=== PATIENT | female | born 1960 | race Caucasian/White ===

== ENCOUNTER → 2016-07-10 | Outpatient (CLI) | payer OTHER ==
[2016-02-15 10:00] VITALS: BP 175/85
[~2016-07-10] MED LIST: ASCO500T2 PO; ASPI81TA2 PO; CARV12.5 PO; CARV3.12 PO; CIPR500T94 PO; DOCU-27 PO; ERGO500012 PO; FERR325T72 PO; HYDR-2666 PO; IBUP200T77 PO; LOSA50TA2 PO
--- NOTE | 2016-07-11 14:47 | EKG ---
[facility] [address] [place] [address] Test Date: 2016-07-11 Test Time: 12:43:17 Pat Name: DESHAWN SCOTT Department: Room: Gender: F Structural Steel Fitter: Selwyn Pérez : 1960 Requested By: MARTIN RODRIGUEZ Order Number: [id number] Reading MD: Martin Rodriguez Interpretive Statements Pt is in sinus rhythm. Several episodes of sinus tach with rate of up to 126. Some sinus bradycardia with a rate of 55 Rare PAC's were recorded Electronically Signed On 07-14-2016 19:04:44 CDT by Martin Rodriguez
== END | disposition home or self-care (01) ==
LOC: EKG 09:15
PROVIDERS: ATTEND Internal Medicine Cardiovascular Disease
DX: I42.9 Cardiomyopathy, unspecified (principal)
CPT/HCPCS: 93225; 93226

== ENCOUNTER → 2017-02-17 | Outpatient (CLI) | payer OTHER ==
[2016-02-15 10:00] VITALS: BP 175/85
[~2017-02-17] MED LIST changes: +ASPI-630 PO; -ASPI81TA2 PO; +DOCU-109 PO; -DOCU-27 PO; -ERGO500012 PO; +ERGO500027 PO; -HYDR-2666 PO; +HYDR-2758 PO
[2017-02-17 08:58] LABS: BASO % 0 % (0-3); EOS % 0 % (0-3); HEMATOCRIT 36.2 % (36.0-47.0); LYMPH # 1.4 x10^3/uL (1.0-4.8); LYMPH % 29 % (24-48); MEAN CORPUSCULAR HEMOGLOBIN 28 pg (25-35); MEAN CORPUSCULAR HGB CONC 33 g/dL (31-37); MEAN CORPUSCULAR VOLUME 84 fL (79-100); MONO % 6 % (0-9); NEUT % 64 % (31-73); PLATELET COUNT 179 x10^3/uL (140-400); RED BLOOD COUNT 4.31 x10^6/uL (3.50-5.40); RED CELL DISTRIBUTION WIDTH 13.9 % (11.5-14.5); WHITE BLOOD COUNT 4.7 x10^3/uL (4.0-11.0)
[2017-02-17 09:20] LABS: ALBUMIN 3.6 g/dL (3.4-5.0); ALBUMIN/GLOBULIN RATIO 0.9 (1.0-1.7); CALCIUM 9.2 mg/dL (8.5-10.1); CREATININE 1.3 mg/dL (0.6-1.0); GFR 42.4; POTASSIUM 4.6 mmol/L (3.5-5.1); TOTAL BILIRUBIN 0.4 mg/dL (0.2-1.0); TOTAL PROTEIN 7.6 g/dL (6.4-8.2)
[2017-02-17 09:22] LABS: CHOLESTEROL/HDL RATIO 2.7
== END | disposition home or self-care (01) ==
LOC: LAB 08:35
PROVIDERS: ATTEND Family Medicine
DX: E55.9 Vitamin D deficiency, unspecified (principal); I10 Essential (primary) hypertension; K21.9 Gastro-esophageal reflux disease without esophagitis
CPT/HCPCS: 36415; 80053; 80061; 82306; 85025

== ENCOUNTER → 2017-02-26 | Outpatient (CLI) | payer OTHER ==
[2016-02-15 10:00] VITALS: BP 175/85
--- NOTE | 2017-02-27 15:43 | RAD ---
DATE: 02/26/2017. EXAM: DIGITAL SCREEN BILAT W/CAD. HISTORY: Routine mammographic screening. COMPARISON: 10/18/2012. This study was interpreted with the benefit of Computerized Aided Detection (CAD). FINDINGS: The breast parenchyma is primarily fatty replaced. Breast parenchyma level density A.. There are no suspicious masses, microcalcifications or architectural distortion. Scattered calcifications are benign. BI-RADS CATEGORY: 2 BENIGN FINDING(S). RECOMMENDED FOLLOW-UP: 12M 12 MONTH FOLLOW-UP. PQRS compliance statement: Patient information was entered into a reminder system with a target due date 02/26/2018 for the next mammogram. Mammography is a sensitive method for finding small breast cancers, but it does not detect them all and is not a substitute for careful clinical examination. A negative mammogram does not negate a clinically suspicious finding and should not result in delay in biopsying a clinically suspicious abnormality. "Our facility is accredited by the [employer] Mammography Program."
== END | disposition home or self-care (01) ==
LOC: MAMMO 10:00
PROVIDERS: ATTEND Family Medicine
DX: Z12.31 Encounter for screening mammogram for malignant neoplasm of breast (principal)
CPT/HCPCS: G0202; 77067

== ENCOUNTER → 2017-04-10 | Day surgery (SDC) | payer OTHER ==
[~2017-04-10] MED LIST changes: -ASCO500T2 PO; -ASPI-630 PO; -CARV12.5 PO; -CARV3.12 PO; -CIPR500T94 PO; -DOCU-109 PO; -ERGO500027 PO; -FERR325T72 PO; -HYDR-2758 PO; +HYDROmorphone 2 MG/ML VIAL IV; -IBUP200T77 PO; +LIDOCAINE 1% PF 2 ML VIAL. ID; +LIDOCAINE 2% PF Vial for OR 5 ML VIAL.; -LOSA50TA2 PO; +MORPHINE SULFATE 2 MG/ML DISP.SYRIN. IV; +ONDANSETRON PF 4 MG/2 ML VIAL. IV; +PROCHLORPERAZINE 10 MG/2 ML VIAL. IV; +PROPOFOL 40 ML IV; +fentaNYL PF VIAL 100 MCG/2 ML VIAL IV
[2017-04-10] MEDS: IV RINGERS,LACTATED 1000ML 1,000 ML IV (07:23)
== END | disposition home or self-care (01) ==
LOC: ENDOS 06:56
DX: Z12.11 Encounter for screening for malignant neoplasm of colon (principal); K64.0 First degree hemorrhoids; K57.30 Diverticulosis of large intestine without perforation or abscess without bleeding; I11.0 Hypertensive heart disease with heart failure; I50.9 Heart failure, unspecified; K21.9 Gastro-esophageal reflux disease without esophagitis; Z90.710 Acquired absence of both cervix and uterus; Z79.01 Long term (current) use of anticoagulants; Z79.82 Long term (current) use of aspirin; Z88.1 Allergy status to other antibiotic agents; Z88.8 Allergy status to other drugs, medicaments and biological substances; Z88.2 Allergy status to sulfonamides
CPT/HCPCS: 45378; J2704

== ENCOUNTER → 2017-07-07 | Outpatient (CLI) | payer OTHER | END | disposition home or self-care (01) | LOC: ECHO 07:32 | DX: I42.9 Cardiomyopathy, unspecified (principal); I36.1 Nonrheumatic tricuspid (valve) insufficiency; R06.02 Shortness of breath; R53.83 Other fatigue | CPT/HCPCS: 93306 ==

== ENCOUNTER 2017-12-22 09:59 | Inpatient (IN) | payer OTHER ==
[~2017-12-22] VITALS: Ht 162.6 cm; Wt 122.5 kg
[~2017-12-22 09:59] MED LIST changes: +ASCO500T2 PO; +ASPI-630 PO; +CARV12.5 PO; +CARV3.12 PO; +CIPR500T94 PO; +DOCU-109 PO; +ERGO500027 PO; +FERR325T72 PO; +HYDR-2758 PO; -HYDROmorphone 2 MG/ML VIAL IV; +IBUP200T77 PO; -LIDOCAINE 1% PF 2 ML VIAL. ID; -LIDOCAINE 2% PF Vial for OR 5 ML VIAL.; +LOSA50TA2 PO; -MORPHINE SULFATE 2 MG/ML DISP.SYRIN. IV; +OMEP20TA8 PO; -ONDANSETRON PF 4 MG/2 ML VIAL. IV; -PROCHLORPERAZINE 10 MG/2 ML VIAL. IV; -PROPOFOL 40 ML IV; +TERB250T11 PO; -fentaNYL PF VIAL 100 MCG/2 ML VIAL IV
[2017-12-22] MEDS ORDERED: IV NORMAL SALINE 500ML BAG 500 ML IV ONE (11:15)
[2017-12-22 11:22] LABS: BASO % 1 % (0-3); EOS % 0 % (0-3); HEMATOCRIT 35.6 % (36.0-47.0); LYMPH # 0.9 x10^3/uL (1.0-4.8); LYMPH % 19 % (24-48); MEAN CORPUSCULAR HEMOGLOBIN 28 pg (25-35); MEAN CORPUSCULAR HGB CONC 34 g/dL (31-37); MEAN CORPUSCULAR VOLUME 83 fL (79-100); MONO # 0.3 x10^3/uL (0.0-1.1); MONO % 6 % (0-9); NEUT # 3.7 x10^3uL (1.8-7.7); NEUT % 75 % (31-73); PLATELET COUNT 178 x10^3/uL (140-400); RED CELL DISTRIBUTION WIDTH 13.7 % (11.5-14.5)
--- NOTE | 2017-12-22 11:27 | PHYS DOC ---
Past Medical History Past Medical History: CHF, Hypertension, Other Additional Past Medical Histor: HEART DISEASE; cardiomyopathy Past Surgical History: , Hysterectomy Alcohol Use: None Drug Use: None Adult General Chief Complaint Chief Complaint: DIZZY/LIGHT HEADED HPI HPI Patient is a 57 year old female who presents with dizziness and some vertigo symptoms. The patient has a known history of cardiomyopathy. She self reports an ejection fraction of 25%. Earlier this morning, she was going about her normal morning routine when she felt a few very strong palpitations in her chest. Following this, she had onset of some lightheadedness and vertigo-type symptoms. The symptoms did not resolve so she came to the ER. Symptoms have been persistent and are worse with certain movements. She did not have chest pain or shortness of breath. She has no focal neurologic complaints otherwise. She was at baseline health prior to onset of symptoms this morning. Review of Systems Review of Systems Constitutional: Denies fever Eyes: Denies change in visual acuity HENT: Denies nasal congestion Respiratory: Denies cough or shortness of breath Cardiovascular: No additional information not addressed in HPI GI: Denies abdominal pain : Denies dysuria Musculoskeletal: Denies back pain Integument: Denies rash Neurologic: Denies headache Endocrine: Denies polyuria All other systems were reviewed and found to be within normal limits, except as documented in this note. Current Medications Current Medications Current Medications Medications (Trade) Dose Ordered Sig/Héctor Start Time Stop Time Status Last Admin Dose Admin Diphenhydramine HCl (Benadryl) 12.5 mg 1X ONCE 12/22/17 13:00 12/22/17 13:04 DC 12/22/17 13:49 12.5 MG Meclizine HCl (Antivert) 25 mg 1X ONCE 12/22/17 11:30 12/22/17 11:31 DC 12/22/17 11:33 25 MG Prochlorperazine Edisylate (Compazine) 10 mg 1X ONCE 12/22/17 13:00 12/22/17 13:04 DC 12/22/17 13:50 10 MG Sodium Chloride 500 ml @ 250 mls/hr 1X ONCE 12/22/17 11:15 12/22/17 13:14 DC 12/22/17 11:33 250 MLS/HR Allergies Allergies Allergies Coded Allergies Type Severity Reaction Last Updated Verified gold Au 198 Allergy Severe SEVERE RASH DEVELOPS OPEN SORES 04/10/17 Yes nickel Allergy Severe SEVERE RASH DEVELOPS TO OPEN SORES 04/10/17 Yes adhesive Allergy Intermediate SILK AND PAPER TAPE CAUSE A RASH 04/10/17 Yes sulfamethoxazole Allergy Intermediate 04/10/17 Yes trimethoprim Allergy Intermediate 04/10/17 Yes erythromycin base Adverse Reaction Intermediate GASTRIC DISTRESS 04/10/17 Yes Physical Exam Physical Exam Constitutional: Well developed, well nourished, no acute distress, non-toxic appearance. [] HENT: Normocephalic, atraumatic, bilateral external ears normal, oropharynx moist, no oral exudates, nose normal. [] Eyes: PERRLA, EOMI, conjunctiva normal, no discharge. [] Neck: Normal range of motion, no tenderness, supple, no stridor. [] Cardiovascular:Heart rate regular rhythm, no murmur [] Lungs & Thorax: Bilateral breath sounds clear to auscultation [] Abdomen: Bowel sounds normal, soft, no tenderness, no masses, no pulsatile masses. [] Skin: Warm, dry, no erythema, no rash. [] Back: No tenderness, no CVA tenderness. [] Extremities: No tenderness, no cyanosis, no clubbing, ROM intact, no edema. [] Neurologic: Alert and oriented X 3, normal motor function, normal sensory function, no focal deficits noted. [] Psychologic: Affect normal, judgement normal, mood normal. [] Current Patient Data Vital Signs Vital Signs Date Time Temp Pulse Resp B/P (MAP) Pulse Ox O2 Delivery O2 Flow Rate FiO2 12/22/17 12:50 76 20 100 12/22/17 10:15 98.1 158/87 (110) Room Air 98.1 Lab Values Laboratory Tests Test 12/22/17 10:40 12/22/17 11:35 White Blood Count 5.0 x10^3/uL (4.0-11.0) Red Blood Count 4.30 x10^6/uL (3.50-5.40) Hemoglobin 12.0 g/dL (12.0-15.5) Hematocrit 35.6 % (36.0-47.0) L Mean Corpuscular Volume 83 fL (79-100) Mean Corpuscular Hemoglobin 28 pg (25-35) Mean Corpuscular Hemoglobin Concent 34 g/dL (31-37) Red Cell Distribution Width 13.7 % (11.5-14.5) Platelet Count 178 x10^3/uL (140-400) Neutrophils (%) (Auto) 75 % (31-73) H Lymphocytes (%) (Auto) 19 % (24-48) L Monocytes (%) (Auto) 6 % (0-9) Eosinophils (%) (Auto) 0 % (0-3) Basophils (%) (Auto) 1 % (0-3) Neutrophils # (Auto) 3.7 x10^3uL (1.8-7.7) Lymphocytes # (Auto) 0.9 x10^3/uL (1.0-4.8) L Monocytes # (Auto) 0.3 x10^3/uL (0.0-1.1) Eosinophils # (Auto) 0.0 x10^3/uL (0.0-0.7) Basophils # (Auto) 0.0 x10^3/uL (0.0-0.2) Sodium Level 141 mmol/L (136-145) Potassium Level 4.4 mmol/L (3.5-5.1) Chloride Level 106 mmol/L (98-107) Carbon Dioxide Level 27 mmol/L (21-32) Anion Gap 8 (6-14) Blood Urea Nitrogen 32 mg/dL (7-20) H Creatinine 1.3 mg/dL (0.6-1.0) H Estimated GFR (Cockcroft-Gault) 42.2 Glucose Level 99 mg/dL (70-99) Calcium Level 9.0 mg/dL (8.5-10.1) Magnesium Level 1.9 mg/dL (1.8-2.4) Troponin I Quantitative < 0.017 ng/mL (0.000-0.055) PG-Mvr-C-Type Natriuretic Peptide 954 pg/mL (0-124) H Urine Collection Type Unknown Urine Color Yellow Urine Clarity Clear Urine pH 5.0 Urine Specific [place] 1.020 Urine Protein 100 mg/dL (NEG-TRACE) Urine Glucose (UA) Negative mg/dL (NEG) Urine Ketones (Stick) Negative mg/dL (NEG) Urine Blood Trace (NEG) Urine Nitrite Negative (NEG) Urine Bilirubin Negative (NEG) Urine Urobilinogen Dipstick 0.2 mg/dL (0.2 mg/dL) Urine Leukocyte Esterase Negative (NEG) Urine RBC 1-2 /HPF (0-2) Urine WBC 1-4 /HPF (0-4) Urine Squamous Epithelial Cells Mod /LPF Urine Bacteria Few /HPF (0-FEW) Urine Mucus Slight /LPF Laboratory Tests 12/22/17 10:40 Laboratory Tests 12/22/17 10:40 EKG EKG No STEMI Interpretation Time: 10:55 Radiology/Procedures Radiology/Procedures CT scan of head: no acute findings Course & Med Decision Making Course & Med Decision Making Pertinent Labs and Imaging studies reviewed. (See chart for details) 11:15: Patient is seen and examined. Normal exam including neurologic examination. No significant nystagmus is seen during EOMI testing. Labs/EKG ordered. 13:00: All results are reviewed. The patient does have mild elevation of creatinine but not worse than baseline. She was given a meclizine and had minimal improvement of her symptoms. Patient does complain of symptoms that seem consistent with simple vertigo although they were preceded by some sort of cardiac arrhythmia this morning. She has been in a normal sinus rhythm since being admitted to the ER. The patient has ongoing symptoms and a lot of anxiety. Her neurologic exam is normal. She did not have significant nystagmus on physical exam. CT head is ordered. Will check portable chest x-ray given the patient's history of CHF. BNP is also added. Plan will be to admit the patient to the hospital. I discussed this patient with Dr. Sevilla who will see the patient. Consult is placed for , the patient's primary manager talent acquisition, to also consult. Cha Disclaimer Mookieon Disclaimer This electronic medical record was generated, in whole or in part, using a voice recognition dictation system. Departure Departure Referrals: BRIAN MENDEZ MD (PCP) JAVIER VALDIVIA DO Dec 22, 2017 11:27
[2017-12-22] MEDS ORDERED: MECLIZINE HCL 12.5 MG TABLET. PO ONE (11:30)
--- NOTE | 2017-12-22 11:34 | EKG ---
[facility] [address] [place] [address] Test Date: 2017-12-22 Test Time: 10:20:38 Pat Name: DESHAWN SCOTT Department: Room: Gender: F Proced Tech: : 1960 Requested By: JAVIER VALDIVIA Order Number: [id number] Reading MD: Drew Martinez MD Measurements Intervals [place] Rate: 86 P: -1 [place]: 156 QRS: 10 QRSD: 98 T: 15 QT: 356 QTc: 429 Interpretive Statements SINUS RHYTHM Electronically Signed On 12-22-2017 12:37:16 CDT by Drew Martinez MD
[2017-12-22 11:40] LABS: CREATININE 1.3 mg/dL (0.6-1.0); GFR 42.2; MAGNESIUM 1.9 mg/dL (1.8-2.4); POTASSIUM 4.4 mmol/L (3.5-5.1)
[2017-12-22 11:48] LABS: BILIRUBIN,URINE NEGATIVE (NEG); CLARITY,URINE CLEAR; COLOR,URINE YELLOW; NITRITE,URINE NEGATIVE (NEG); PROTEIN,URINE 100 mg/dL (NEG-TRACE); UROBILINOGEN,URINE 0.2 mg/dL (0.2 mg/dL)
[2017-12-22 12:18] LABS: BACTERIA,URINE FEW /HPF (0-FEW); SQUAMOUS EPITHELIAL CELL,UR MOD /LPF
[2017-12-22] MEDS ORDERED: diphenhydrAMINE 50 MG/ML VIAL IVP ONE (13:00)
[2017-12-22] MEDS ORDERED: PROCHLORPERAZINE 10 MG/2 ML VIAL. IV ONE (13:00)
[2017-12-22] MEDS ORDERED: MECLIZINE HCL 12.5 MG TABLET. PO PRN ×2 (13:15→21:00)
[2017-12-22] MEDS ORDERED: ONDANSETRON PF 4 MG/2 ML VIAL. IV PRN (13:15)
--- NOTE | 2017-12-22 13:24 | RAD ---
Portable chest, 12/22/2017: HISTORY: Dizziness, CHF, cardiomyopathy Comparison is made to a study from 09/23/2015. The heart is at the upper limits of normal in size. The pulmonary vascularity is normal. No pulmonary infiltrate is seen. There is no evidence of pleural fluid. IMPRESSION: No acute cardiopulmonary abnormality is detected. Electronically signed by: Pradeep Garner MD (12/22/2017 1:21 PM) [facility]
--- NOTE | 2017-12-22 13:37 | RAD ---
CT of the head without contrast, 12/22/2017: HISTORY: Dizziness Comparison is made to a study from 09/23/2015. The ventricles are within normal limits in size. There is no shift of the midline structures. There is no evidence of acute intracranial hemorrhage or mass effect. IMPRESSION: No acute intracranial abnormality is detected. RS Compliance Statement: One or more of the following individualized dose reduction techniques were utilized for this examination: 1. Automated exposure control 2. Adjustment of the mA and/or kV according to patient size 3. Use of iterative reconstruction technique Electronically signed by: Pradeep Garner MD (12/22/2017 1:34 PM) [facility]
[2017-12-22] MEDS: ACETAMINOPHEN 325 MG TABLET. PO PRN (14:41)
[2017-12-22 15:00] VITALS: BP 145/94
[2017-12-22] MEDS ORDERED: CARV6.25 PO (17:22)
[2017-12-22] MEDS ORDERED: CHOL2000 PO (17:22)
[2017-12-22] MEDS ORDERED: FLUT9.9S NS (17:22)
[2017-12-22] MEDS ORDERED: ASPI-630 PO (17:22)
[2017-12-22] MEDS ORDERED: ASCO10002 PO (17:22)
--- NOTE | 2017-12-22 17:30 | PDOC2 ---
CONSULT Date of Consult Date of Consult DATE: 12/22/17 TIME: 17:26 Reason for Consult Reason for Consult: Palpitations Referring Physician Referring Physician: Dr. Sevilla Identification/Chief Complaint Chief Complaint Dizziness and palpitations History of Present Illness Reason for Visit: This patient is a very pleasant 57-year-old lady that has a known history of a non-ischemic cardiomyopathy. She has responded very well to medications. For over a week she has been having problems with allergies and then today she got up and all of a sudden had acute onset of loss of balance with everything spinning around her and she was unable to ambulate or drive. She was brought to the emergency room where she was seen and examined and it was decided to admit her for further care. The patient states that at first she felt changes in her heart beat like a flip- flop and this was immediately followed by a hot flash and the dizziness. She had no loss of consciousness and no chest pains. Presently if she moves her head she gets dizzy again but the symptoms are control if she's not moving and laying down. Past Medical History Cardiovascular: CHF, HTN, Other (nonischemic cardiomyopathy) Pulmonary: Asthma ENT: Allergic Rhinitis Social History ALCOHOL: none Drugs: None Current Problem List Problem List Problems Medical Problems: (1) Palpitations Status: Acute (2) Vertigo Status: Acute Current Medications Current Medications Current Medications Sodium Chloride 500 ml @ 250 mls/hr 1X ONCE IV Last administered on 12/22/17at 11:33; Start 12/22/17 at 11:15; Stop 12/22/17 at 13:14; Status DC Meclizine HCl (Antivert) 25 mg 1X ONCE PO Last administered on 12/22/17at 11:33 ; Start 12/22/17 at 11:30; Stop 12/22/17 at 11:31; Status DC Prochlorperazine Edisylate (Compazine) 10 mg 1X ONCE IV Last administered on at 13:50; Start 12/22/17 at 13:00; Stop 12/22/17 at 13:04; Status DC Diphenhydramine HCl (Benadryl) 12.5 mg 1X ONCE IVP Last administered on at 13:49; Start 12/22/17 at 13:00; Stop 12/22/17 at 13:04; Status DC Ondansetron HCl (Zofran) 4 mg PRN Q8HRS PRN IV NAUSEA/VOMITING; Start 12/22/17 at 13:15; Stop 12/23/17 at 13:14 Acetaminophen (Tylenol) 650 mg PRN Q4HRS PRN PO FEVER Last administered on at 14:41; Start 12/22/17 at 13:15; Stop 12/23/17 at 13:14 Meclizine HCl (Antivert) 25 mg PRN TID PRN PO Vertigo symptoms; Start 12/22/17 at 13:15 Active Scripts Active Reported Vitamin D (Cholecalciferol (Vitamin D3)) 2,000 Unit Capsule 1 Cap PO HS Flonase Allergy Relief (Fluticasone Propionate) 9.9 Ml [place].susp 2 Sprays NS DAILY Vitamin C (Ascorbic Acid) 1,000 Mg Tablet 1,000 Mg PO HS Aspirin 81 Mg Tab.chew 1 Tab PO HS Coreg (Carvedilol) 6.25 Mg Tablet 1 Tab PO BID Allergies Allergies: Coded Allergies: gold Au 198 (Verified Allergy, Severe, SEVERE RASH DEVELOPS OPEN SORES, ) METAL nickel (Verified Allergy, Severe, SEVERE RASH DEVELOPS TO OPEN SORES, ) adhesive (Verified Allergy, Intermediate, SILK AND PAPER TAPE CAUSE A RASH , 04/10/17) CLEAR TAPE IS OK sulfamethoxazole (Verified Allergy, Intermediate, 04/10/17) trimethoprim (Verified Allergy, Intermediate, 04/10/17) erythromycin base (Verified Adverse Reaction, Intermediate, GASTRIC DISTRESS, 04/10/17) Physical Exam General: Alert, Oriented X3, Cooperative HEENT: Atraumatic, PERRLA Lungs: Clear to auscultation Heart: Regular rate, Normal S1, Normal S2 Abdomen: Normal bowel sounds, Soft Extremities: No edema Vitals VITALS Vital Signs Date Time Temp Pulse Resp B/P (MAP) Pulse Ox O2 Delivery O2 Flow Rate FiO2 12/22/17 15:00 97.6 75 20 145/94 (111) 95 Room Air 97.6 Labs Labs Laboratory Tests Test 12/22/17 10:40 12/22/17 11:35 12/22/17 16:15 White Blood Count 5.0 x10^3/uL (4.0-11.0) Red Blood Count 4.30 x10^6/uL (3.50-5.40) Hemoglobin 12.0 g/dL (12.0-15.5) Hematocrit 35.6 % (36.0-47.0) Mean Corpuscular Volume 83 fL (79-100) Mean Corpuscular Hemoglobin 28 pg (25-35) Mean Corpuscular Hemoglobin Concent 34 g/dL (31-37) Red Cell Distribution Width 13.7 % (11.5-14.5) Platelet Count 178 x10^3/uL (140-400) Neutrophils (%) (Auto) 75 % (31-73) Lymphocytes (%) (Auto) 19 % (24-48) Monocytes (%) (Auto) 6 % (0-9) Eosinophils (%) (Auto) 0 % (0-3) Basophils (%) (Auto) 1 % (0-3) Neutrophils # (Auto) 3.7 x10^3uL (1.8-7.7) Lymphocytes # (Auto) 0.9 x10^3/uL (1.0-4.8) Monocytes # (Auto) 0.3 x10^3/uL (0.0-1.1) Eosinophils # (Auto) 0.0 x10^3/uL (0.0-0.7) Basophils # (Auto) 0.0 x10^3/uL (0.0-0.2) Sodium Level 141 mmol/L (136-145) Potassium Level 4.4 mmol/L (3.5-5.1) Chloride Level 106 mmol/L (98-107) Carbon Dioxide Level 27 mmol/L (21-32) Anion Gap 8 (6-14) Blood Urea Nitrogen 32 mg/dL (7-20) Creatinine 1.3 mg/dL (0.6-1.0) Estimated GFR (Cockcroft-Gault) 42.2 Glucose Level 99 mg/dL (70-99) Calcium Level 9.0 mg/dL (8.5-10.1) Magnesium Level 1.9 mg/dL (1.8-2.4) Troponin I Quantitative < 0.017 ng/mL (0.000-0.055) < 0.017 ng/mL (0.000-0.055) GF-Snd-U-Type Natriuretic Peptide 954 pg/mL (0-124) Urine Collection Type Unknown Urine Color Yellow Urine Clarity Clear Urine pH 5.0 Urine Specific [place] 1.020 Urine Protein 100 mg/dL (NEG-TRACE) Urine Glucose (UA) Negative mg/dL (NEG) Urine Ketones (Stick) Negative mg/dL (NEG) Urine Blood Trace (NEG) Urine Nitrite Negative (NEG) Urine Bilirubin Negative (NEG) Urine Urobilinogen Dipstick 0.2 mg/dL (0.2 mg/dL) Urine Leukocyte Esterase Negative (NEG) Urine RBC 1-2 /HPF (0-2) Urine WBC 1-4 /HPF (0-4) Urine Squamous Epithelial Cells Mod /LPF Urine Bacteria Few /HPF (0-FEW) Urine Mucus Slight /LPF Laboratory Tests Test 12/22/17 10:40 12/22/17 11:35 12/22/17 16:15 White Blood Count 5.0 x10^3/uL (4.0-11.0) Red Blood Count 4.30 x10^6/uL (3.50-5.40) Hemoglobin 12.0 g/dL (12.0-15.5) Hematocrit 35.6 % (36.0-47.0) Mean Corpuscular Volume 83 fL (79-100) Mean Corpuscular Hemoglobin 28 pg (25-35) Mean Corpuscular Hemoglobin Concent 34 g/dL (31-37) Red Cell Distribution Width 13.7 % (11.5-14.5) Platelet Count 178 x10^3/uL (140-400) Neutrophils (%) (Auto) 75 % (31-73) Lymphocytes (%) (Auto) 19 % (24-48) Monocytes (%) (Auto) 6 % (0-9) Eosinophils (%) (Auto) 0 % (0-3) Basophils (%) (Auto) 1 % (0-3) Neutrophils # (Auto) 3.7 x10^3uL (1.8-7.7) Lymphocytes # (Auto) 0.9 x10^3/uL (1.0-4.8) Monocytes # (Auto) 0.3 x10^3/uL (0.0-1.1) Eosinophils # (Auto) 0.0 x10^3/uL (0.0-0.7) Basophils # (Auto) 0.0 x10^3/uL (0.0-0.2) Sodium Level 141 mmol/L (136-145) Potassium Level 4.4 mmol/L (3.5-5.1) Chloride Level 106 mmol/L (98-107) Carbon Dioxide Level 27 mmol/L (21-32) Anion Gap 8 (6-14) Blood Urea Nitrogen 32 mg/dL (7-20) Creatinine 1.3 mg/dL (0.6-1.0) Estimated GFR (Cockcroft-Gault) 42.2 Glucose Level 99 mg/dL (70-99) Calcium Level 9.0 mg/dL (8.5-10.1) Magnesium Level 1.9 mg/dL (1.8-2.4) Troponin I Quantitative < 0.017 ng/mL (0.000-0.055) < 0.017 ng/mL (0.000-0.055) TH-Bjw-C-Type Natriuretic Peptide 954 pg/mL (0-124) Urine Collection Type Unknown Urine Color Yellow Urine Clarity Clear Urine pH 5.0 Urine Specific [place] 1.020 Urine Protein 100 mg/dL (NEG-TRACE) Urine Glucose (UA) Negative mg/dL (NEG) Urine Ketones (Stick) Negative mg/dL (NEG) Urine Blood Trace (NEG) Urine Nitrite Negative (NEG) Urine Bilirubin Negative (NEG) Urine Urobilinogen Dipstick 0.2 mg/dL (0.2 mg/dL) Urine Leukocyte Esterase Negative (NEG) Urine RBC 1-2 /HPF (0-2) Urine WBC 1-4 /HPF (0-4) Urine Squamous Epithelial Cells Mod /LPF Urine Bacteria Few /HPF (0-FEW) Urine Mucus Slight /LPF Assessment/Plan Assessment/Plan This patient comes in with what appears to be an episode of vertigo. 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 I will resume her home meds and consider steroids for her. Thank you very much for asking me to participate in the care of this patient. KAILA SARAH MD Dec 22, 2017 17:30
[2017-12-22] MEDS: CARVEDILOL 6.25 MG TABLET. PO SCH (18:39)
[2017-12-22] MEDS: methylPREDNISolone 4 MG TABLET. PO SCH ×4 (18:39→20:42)
[2017-12-22 19:00] VITALS: BP 171/81
[2017-12-22] MEDS: ASPIRIN CHEWABLE 81 MG TABLET. PO SCH (20:42)
[2017-12-22] MEDS: ASCORBIC ACID 500 MG TABLET PO SCH (20:42)
--- NOTE | 2017-12-22 20:48 | PDOC1 ---
History and Physical Date of Admission Date of Admission DATE: 12/22/17 TIME: 20:48 Identification/Chief Complaint Chief Complaint SEEN IN er 57 year old female, with dizziness and severe vertigo symptoms, persistent palpitations with presyncopal symptoms has a known history of cardiomyopathy, an ejection fraction of 25%. Earlier this morning, felt a few very strong palpitations in her chest. Following this, she had onset of some lightheadedness, felt she might pass out vertigo-type symptoms.persist cardiology consulted, placed on tele Past Medical History Past Medical History Past Medical History Past Medical History: CHF, Hypertension, Other Additional Past Medical Histor: HEART DISEASE; cardiomyopathy, viral induced Past Surgical History: , Hysterectomy Alcohol Use: None Drug Use: None works here as [employer] family hx obesity Cardiovascular: CHF, HTN, Other (nonischemic cardiomyopathy) Pulmonary: Asthma ENT: Allergic Rhinitis Renal/: No pertinent hx Family History Family History: High Cholestrol Social History Smoke: No ALCOHOL: none Drugs: None Current Problem List Problem List Problems Medical Problems: (1) Palpitations Status: Acute (2) Vertigo Status: Acute Current Medications Current Medications Current Medications Sodium Chloride 500 ml @ 250 mls/hr 1X ONCE IV Last administered on 12/22/17at 11:33; Start 12/22/17 at 11:15; Stop 12/22/17 at 13:14; Status DC Meclizine HCl (Antivert) 25 mg 1X ONCE PO Last administered on 12/22/17at 11:33 ; Start 12/22/17 at 11:30; Stop 12/22/17 at 11:31; Status DC Prochlorperazine Edisylate (Compazine) 10 mg 1X ONCE IV Last administered on at 13:50; Start 12/22/17 at 13:00; Stop 12/22/17 at 13:04; Status DC Diphenhydramine HCl (Benadryl) 12.5 mg 1X ONCE IVP Last administered on at 13:49; Start 12/22/17 at 13:00; Stop 12/22/17 at 13:04; Status DC Ondansetron HCl (Zofran) 4 mg PRN Q8HRS PRN IV NAUSEA/VOMITING; Start 12/22/17 at 13:15; Stop 12/23/17 at 13:14 Acetaminophen (Tylenol) 650 mg PRN Q4HRS PRN PO FEVER Last administered on at 14:41; Start 12/22/17 at 13:15; Stop 12/23/17 at 13:14 Meclizine HCl (Antivert) 25 mg PRN TID PRN PO Vertigo symptoms; Start 12/22/17 at 13:15 Aspirin (Children'S Aspirin) 81 mg HS PO Last administered on 12/22/17at 20:42; Start 12/22/17 at 21:00 Carvedilol (Coreg) 6.25 mg BIDWMEALS PO Last administered on 12/22/17at 18:39; Start 12/22/17 at 18:30 Ascorbic Acid (Vitamin C) 1,000 mg QHS PO Last administered on 12/22/17at 20:42; Start 12/22/17 at 21:00 Vitamin D (Vitamin D3) 2,000 unit QHS PO ; Start 12/23/17 at 09:00 Fluticasone Propionate (Flonase) 2 spray DAILY NS ; Start 12/23/17 at 09:00 Methylprednisolone (Medrol) 8 mg BID PO Last administered on 12/22/17at 20:42; Start 12/22/17 at 09:00; Stop 12/22/17 at 21:01 Methylprednisolone (Medrol) 4 mg BIDPCLD PO Last administered on 12/22/17at 18:40 ; Start 12/22/17 at 12:30; Stop 12/22/17 at 18:18; Status DC Methylprednisolone (Medrol) 4 mg TIDPC PO ; Start 12/23/17 at 08:30; Stop at 17:31 Methylprednisolone (Medrol) 8 mg QHS PO ; Start 12/23/17 at 21:00; Stop 12/23/17 at 21:01 Methylprednisolone (Medrol) 4 mg QIDAFTMEAL PO ; Start 12/24/17 at 09:00; Stop at 21:01 Methylprednisolone (Medrol) 4 mg TID PO ; Start 12/25/17 at 09:00; Stop 12/25/17 at 21:01 Methylprednisolone (Medrol) 4 mg BID PO ; Start 12/26/17 at 09:00; Stop 12/26/17 at 21:01 Methylprednisolone (Medrol) 4 mg DAILY PO ; Start 12/27/17 at 09:00; Stop at 09:01 Active Scripts Active Reported Vitamin D (Cholecalciferol (Vitamin D3)) 2,000 Unit Capsule 1 Cap PO HS Flonase Allergy Relief (Fluticasone Propionate) 9.9 Ml [place].susp 2 Sprays NS DAILY Vitamin C (Ascorbic Acid) 1,000 Mg Tablet 1,000 Mg PO HS Aspirin 81 Mg Tab.chew 1 Tab PO HS Coreg (Carvedilol) 6.25 Mg Tablet 1 Tab PO BID Allergies Allergies: Coded Allergies: gold Au 198 (Verified Allergy, Severe, SEVERE RASH DEVELOPS OPEN SORES, ) METAL nickel (Verified Allergy, Severe, SEVERE RASH DEVELOPS TO OPEN SORES, ) adhesive (Verified Allergy, Intermediate, SILK AND PAPER TAPE CAUSE A RASH , 04/10/17) CLEAR TAPE IS OK sulfamethoxazole (Verified Allergy, Intermediate, 04/10/17) trimethoprim (Verified Allergy, Intermediate, 04/10/17) erythromycin base (Verified Adverse Reaction, Intermediate, GASTRIC DISTRESS, 04/10/17) ROS Review of System Review of Systems Review of Systems Constitutional: Denies fever Eyes: Denies change in visual acuity HENT: Denies nasal congestion Respiratory: Denies cough or shortness of breath Cardiovascular: No additional information not addressed in HPI GI: Denies abdominal pain : Denies dysuria Musculoskeletal: Denies back pain Integument: Denies rash Neurologic: Denies headache Endocrine: Denies polyuria 14 pt systems were reviewed and found to be within normal limits, except as documented. General: YES: Fatigue Cardiovascular: yes Palpitations Musculoskeletal: Yes Gait Disturbance Physical Exam Physical Exam Physical Exam Physical Exam Constitutional: Well developed, well nourished, no acute distress, non-toxic appearance. [] HENT: Normocephalic, atraumatic, bilateral external ears normal, oropharynx moist, no oral exudates, nose normal. [] Eyes: PERRLA, EOMI, conjunctiva normal, no discharge. [] Neck: Normal range of motion, no tenderness, supple, no stridor. [] Cardiovascular:Heart rate regular rhythm, no murmur [] Lungs & Thorax: Bilateral breath sounds clear to auscultation [] Abdomen: Bowel sounds normal, soft, no tenderness, no masses, no pulsatile masses. [] Skin: Warm, dry, no erythema, no rash. [] Back: No tenderness, no CVA tenderness. [] Extremities: No tenderness, no cyanosis, no clubbing, ROM intact, no edema. [] Neurologic: Alert and oriented X 3, normal motor function, normal sensory function, no focal deficits noted. [] Psychologic: Affect normal, judgement normal, mood normal. [] General: Alert, Oriented X3, Cooperative, moderate distress HEENT: PERRLA, EOMI, Mucous membr. moist/pink Heart: RRR Breasts: Not examined Abdomen: Soft, Other (obese) PELVIC: Examination not indicated Extremities: No clubbing, No cyanosis Skin: No breakdown Neuro: Normal speech, Cranial nerves 3-12 NL Psych/Mental Status: Mental status NL, Mood NL Vitals Vitals Vital Signs Date Time Temp Pulse Resp B/P (MAP) Pulse Ox O2 Delivery O2 Flow Rate FiO2 12/22/17 19:00 98.1 82 20 171/81 (111) 96 Room Air 98.1 Labs Labs Laboratory Tests Test 12/22/17 10:40 12/22/17 11:35 12/22/17 16:15 12/22/17 18:45 White Blood Count 5.0 x10^3/uL (4.0-11.0) Red Blood Count 4.30 x10^6/uL (3.50-5.40) Hemoglobin 12.0 g/dL (12.0-15.5) Hematocrit 35.6 % (36.0-47.0) Mean Corpuscular Volume 83 fL (79-100) Mean Corpuscular Hemoglobin 28 pg (25-35) Mean Corpuscular Hemoglobin Concent 34 g/dL (31-37) Red Cell Distribution Width 13.7 % (11.5-14.5) Platelet Count 178 x10^3/uL (140-400) Neutrophils (%) (Auto) 75 % (31-73) Lymphocytes (%) (Auto) 19 % (24-48) Monocytes (%) (Auto) 6 % (0-9) Eosinophils (%) (Auto) 0 % (0-3) Basophils (%) (Auto) 1 % (0-3) Neutrophils # (Auto) 3.7 x10^3uL (1.8-7.7) Lymphocytes # (Auto) 0.9 x10^3/uL (1.0-4.8) Monocytes # (Auto) 0.3 x10^3/uL (0.0-1.1) Eosinophils # (Auto) 0.0 x10^3/uL (0.0-0.7) Basophils # (Auto) 0.0 x10^3/uL (0.0-0.2) Sodium Level 141 mmol/L (136-145) Potassium Level 4.4 mmol/L (3.5-5.1) Chloride Level 106 mmol/L (98-107) Carbon Dioxide Level 27 mmol/L (21-32) Anion Gap 8 (6-14) Blood Urea Nitrogen 32 mg/dL (7-20) Creatinine 1.3 mg/dL (0.6-1.0) Estimated GFR (Cockcroft-Gault) 42.2 Glucose Level 99 mg/dL (70-99) Calcium Level 9.0 mg/dL (8.5-10.1) Magnesium Level 1.9 mg/dL (1.8-2.4) Troponin I Quantitative < 0.017 ng/mL (0.000-0.055) < 0.017 ng/mL (0.000-0.055) < 0.017 ng/mL (0.000-0.055) WD-Sgi-F-Type Natriuretic Peptide 954 pg/mL (0-124) Urine Collection Type Unknown Urine Color Yellow Urine Clarity Clear Urine pH 5.0 Urine Specific [place] 1.020 Urine Protein 100 mg/dL (NEG-TRACE) Urine Glucose (UA) Negative mg/dL (NEG) Urine Ketones (Stick) Negative mg/dL (NEG) Urine Blood Trace (NEG) Urine Nitrite Negative (NEG) Urine Bilirubin Negative (NEG) Urine Urobilinogen Dipstick 0.2 mg/dL (0.2 mg/dL) Urine Leukocyte Esterase Negative (NEG) Urine RBC 1-2 /HPF (0-2) Urine WBC 1-4 /HPF (0-4) Urine Squamous Epithelial Cells Mod /LPF Urine Bacteria Few /HPF (0-FEW) Urine Mucus Slight /LPF Laboratory Tests Test 12/22/17 10:40 12/22/17 11:35 12/22/17 16:15 12/22/17 18:45 White Blood Count 5.0 x10^3/uL (4.0-11.0) Red Blood Count 4.30 x10^6/uL (3.50-5.40) Hemoglobin 12.0 g/dL (12.0-15.5) Hematocrit 35.6 % (36.0-47.0) Mean Corpuscular Volume 83 fL (79-100) Mean Corpuscular Hemoglobin 28 pg (25-35) Mean Corpuscular Hemoglobin Concent 34 g/dL (31-37) Red Cell Distribution Width 13.7 % (11.5-14.5) Platelet Count 178 x10^3/uL (140-400) Neutrophils (%) (Auto) 75 % (31-73) Lymphocytes (%) (Auto) 19 % (24-48) Monocytes (%) (Auto) 6 % (0-9) Eosinophils (%) (Auto) 0 % (0-3) Basophils (%) (Auto) 1 % (0-3) Neutrophils # (Auto) 3.7 x10^3uL (1.8-7.7) Lymphocytes # (Auto) 0.9 x10^3/uL (1.0-4.8) Monocytes # (Auto) 0.3 x10^3/uL (0.0-1.1) Eosinophils # (Auto) 0.0 x10^3/uL (0.0-0.7) Basophils # (Auto) 0.0 x10^3/uL (0.0-0.2) Sodium Level 141 mmol/L (136-145) Potassium Level 4.4 mmol/L (3.5-5.1) Chloride Level 106 mmol/L (98-107) Carbon Dioxide Level 27 mmol/L (21-32) Anion Gap 8 (6-14) Blood Urea Nitrogen 32 mg/dL (7-20) Creatinine 1.3 mg/dL (0.6-1.0) Estimated GFR (Cockcroft-Gault) 42.2 Glucose Level 99 mg/dL (70-99) Calcium Level 9.0 mg/dL (8.5-10.1) Magnesium Level 1.9 mg/dL (1.8-2.4) Troponin I Quantitative < 0.017 ng/mL (0.000-0.055) < 0.017 ng/mL (0.000-0.055) < 0.017 ng/mL (0.000-0.055) ET-Bff-T-Type Natriuretic Peptide 954 pg/mL (0-124) Urine Collection Type Unknown Urine Color Yellow Urine Clarity Clear Urine pH 5.0 Urine Specific [place] 1.020 Urine Protein 100 mg/dL (NEG-TRACE) Urine Glucose (UA) Negative mg/dL (NEG) Urine Ketones (Stick) Negative mg/dL (NEG) Urine Blood Trace (NEG) Urine Nitrite Negative (NEG) Urine Bilirubin Negative (NEG) Urine Urobilinogen Dipstick 0.2 mg/dL (0.2 mg/dL) Urine Leukocyte Esterase Negative (NEG) Urine RBC 1-2 /HPF (0-2) Urine WBC 1-4 /HPF (0-4) Urine Squamous Epithelial Cells Mod /LPF Urine Bacteria Few /HPF (0-FEW) Urine Mucus Slight /LPF VTE Prophylaxis Ordered VTE Prophylaxis Devices: Yes VTE Pharmacological Prophylaxi: Yes Assessment/Plan Assessment/Plan impression 1. palpitations concerning for arrythmia 2. hx CARDIOMYOPATHY 3. MORBID OBESITY PLAN 1. Consult 2. admit tele 3, iv fluid support 4. meclizine 25 mg po tid 5. bedrest 6. sq lovenox dvt prophylaxis 7. doppler carotids MILLI CORLEY MD Dec 22, 2017 20:48
[2017-12-22] MEDS ORDERED: ENOXAPARIN 40 MG/0.4 ML SYRINGE. SQ SCH (22:00)
[2017-12-22 23:00] VITALS: BP 151/78
[2017-12-23 03:00] VITALS: BP 145/83
--- NOTE | 2017-12-23 04:55 | PDOC ---
PROGRESS NOTES History of Present Illness History of Present Illness Assessment/Plan Assessment/Plan impression 1. palpitations concerning for arrythmia 2. hx CARDIOMYOPATHY 3. MORBID OBESITY PLAN 1. Consult 2. admit tele 3, iv fluid support 4. meclizine 25 mg po tid 5. bedrest 6. sq lovenox dvt prophylaxis 7. doppler carotids Vitals Vitals Vital Signs Date Time Temp Pulse Resp B/P (MAP) Pulse Ox O2 Delivery O2 Flow Rate FiO2 12/23/17 03:00 98.1 72 20 145/83 (103) 98 Room Air 98.1 Physical Exam General: Alert, Oriented X3, Cooperative, No acute distress, moderate distress Heart: Regular rate, Normal S1, Normal S2 Lungs: Clear Abdomen: Soft, Other (obese) Extremities: No clubbing, No cyanosis Skin: No breakdown Labs LABS Laboratory Tests Test 12/22/17 10:40 12/22/17 11:35 12/22/17 16:15 12/22/17 18:45 White Blood Count 5.0 x10^3/uL (4.0-11.0) Red Blood Count 4.30 x10^6/uL (3.50-5.40) Hemoglobin 12.0 g/dL (12.0-15.5) Hematocrit 35.6 % (36.0-47.0) Mean Corpuscular Volume 83 fL (79-100) Mean Corpuscular Hemoglobin 28 pg (25-35) Mean Corpuscular Hemoglobin Concent 34 g/dL (31-37) Red Cell Distribution Width 13.7 % (11.5-14.5) Platelet Count 178 x10^3/uL (140-400) Neutrophils (%) (Auto) 75 % (31-73) Lymphocytes (%) (Auto) 19 % (24-48) Monocytes (%) (Auto) 6 % (0-9) Eosinophils (%) (Auto) 0 % (0-3) Basophils (%) (Auto) 1 % (0-3) Neutrophils # (Auto) 3.7 x10^3uL (1.8-7.7) Lymphocytes # (Auto) 0.9 x10^3/uL (1.0-4.8) Monocytes # (Auto) 0.3 x10^3/uL (0.0-1.1) Eosinophils # (Auto) 0.0 x10^3/uL (0.0-0.7) Basophils # (Auto) 0.0 x10^3/uL (0.0-0.2) Sodium Level 141 mmol/L (136-145) Potassium Level 4.4 mmol/L (3.5-5.1) Chloride Level 106 mmol/L (98-107) Carbon Dioxide Level 27 mmol/L (21-32) Anion Gap 8 (6-14) Blood Urea Nitrogen 32 mg/dL (7-20) Creatinine 1.3 mg/dL (0.6-1.0) Estimated GFR (Cockcroft-Gault) 42.2 Glucose Level 99 mg/dL (70-99) Calcium Level 9.0 mg/dL (8.5-10.1) Magnesium Level 1.9 mg/dL (1.8-2.4) Troponin I Quantitative < 0.017 ng/mL (0.000-0.055) < 0.017 ng/mL (0.000-0.055) < 0.017 ng/mL (0.000-0.055) BK-Mfl-V-Type Natriuretic Peptide 954 pg/mL (0-124) Urine Collection Type Unknown Urine Color Yellow Urine Clarity Clear Urine pH 5.0 Urine Specific [place] 1.020 Urine Protein 100 mg/dL (NEG-TRACE) Urine Glucose (UA) Negative mg/dL (NEG) Urine Ketones (Stick) Negative mg/dL (NEG) Urine Blood Trace (NEG) Urine Nitrite Negative (NEG) Urine Bilirubin Negative (NEG) Urine Urobilinogen Dipstick 0.2 mg/dL (0.2 mg/dL) Urine Leukocyte Esterase Negative (NEG) Urine RBC 1-2 /HPF (0-2) Urine WBC 1-4 /HPF (0-4) Urine Squamous Epithelial Cells Mod /LPF Urine Bacteria Few /HPF (0-FEW) Urine Mucus Slight /LPF Assessment and Plan Assessmemt and Plan Problems Medical Problems: (1) Palpitations Status: Acute (2) Vertigo Status: Acute Comment Review of Relevant I have reviewed the following items nicole (where applicable) has been applied. Labs Laboratory Tests Test 12/22/17 10:40 12/22/17 11:35 12/22/17 16:15 12/22/17 18:45 White Blood Count 5.0 x10^3/uL (4.0-11.0) Red Blood Count 4.30 x10^6/uL (3.50-5.40) Hemoglobin 12.0 g/dL (12.0-15.5) Hematocrit 35.6 % (36.0-47.0) Mean Corpuscular Volume 83 fL (79-100) Mean Corpuscular Hemoglobin 28 pg (25-35) Mean Corpuscular Hemoglobin Concent 34 g/dL (31-37) Red Cell Distribution Width 13.7 % (11.5-14.5) Platelet Count 178 x10^3/uL (140-400) Neutrophils (%) (Auto) 75 % (31-73) Lymphocytes (%) (Auto) 19 % (24-48) Monocytes (%) (Auto) 6 % (0-9) Eosinophils (%) (Auto) 0 % (0-3) Basophils (%) (Auto) 1 % (0-3) Neutrophils # (Auto) 3.7 x10^3uL (1.8-7.7) Lymphocytes # (Auto) 0.9 x10^3/uL (1.0-4.8) Monocytes # (Auto) 0.3 x10^3/uL (0.0-1.1) Eosinophils # (Auto) 0.0 x10^3/uL (0.0-0.7) Basophils # (Auto) 0.0 x10^3/uL (0.0-0.2) Sodium Level 141 mmol/L (136-145) Potassium Level 4.4 mmol/L (3.5-5.1) Chloride Level 106 mmol/L (98-107) Carbon Dioxide Level 27 mmol/L (21-32) Anion Gap 8 (6-14) Blood Urea Nitrogen 32 mg/dL (7-20) Creatinine 1.3 mg/dL (0.6-1.0) Estimated GFR (Cockcroft-Gault) 42.2 Glucose Level 99 mg/dL (70-99) Calcium Level 9.0 mg/dL (8.5-10.1) Magnesium Level 1.9 mg/dL (1.8-2.4) Troponin I Quantitative < 0.017 ng/mL (0.000-0.055) < 0.017 ng/mL (0.000-0.055) < 0.017 ng/mL (0.000-0.055) SX-Zfh-T-Type Natriuretic Peptide 954 pg/mL (0-124) Urine Collection Type Unknown Urine Color Yellow Urine Clarity Clear Urine pH 5.0 Urine Specific [place] 1.020 Urine Protein 100 mg/dL (NEG-TRACE) Urine Glucose (UA) Negative mg/dL (NEG) Urine Ketones (Stick) Negative mg/dL (NEG) Urine Blood Trace (NEG) Urine Nitrite Negative (NEG) Urine Bilirubin Negative (NEG) Urine Urobilinogen Dipstick 0.2 mg/dL (0.2 mg/dL) Urine Leukocyte Esterase Negative (NEG) Urine RBC 1-2 /HPF (0-2) Urine WBC 1-4 /HPF (0-4) Urine Squamous Epithelial Cells Mod /LPF Urine Bacteria Few /HPF (0-FEW) Urine Mucus Slight /LPF Laboratory Tests Test 12/22/17 10:40 12/22/17 11:35 12/22/17 16:15 12/22/17 18:45 White Blood Count 5.0 x10^3/uL (4.0-11.0) Red Blood Count 4.30 x10^6/uL (3.50-5.40) Hemoglobin 12.0 g/dL (12.0-15.5) Hematocrit 35.6 % (36.0-47.0) Mean Corpuscular Volume 83 fL (79-100) Mean Corpuscular Hemoglobin 28 pg (25-35) Mean Corpuscular Hemoglobin Concent 34 g/dL (31-37) Red Cell Distribution Width 13.7 % (11.5-14.5) Platelet Count 178 x10^3/uL (140-400) Neutrophils (%) (Auto) 75 % (31-73) Lymphocytes (%) (Auto) 19 % (24-48) Monocytes (%) (Auto) 6 % (0-9) Eosinophils (%) (Auto) 0 % (0-3) Basophils (%) (Auto) 1 % (0-3) Neutrophils # (Auto) 3.7 x10^3uL (1.8-7.7) Lymphocytes # (Auto) 0.9 x10^3/uL (1.0-4.8) Monocytes # (Auto) 0.3 x10^3/uL (0.0-1.1) Eosinophils # (Auto) 0.0 x10^3/uL (0.0-0.7) Basophils # (Auto) 0.0 x10^3/uL (0.0-0.2) Sodium Level 141 mmol/L (136-145) Potassium Level 4.4 mmol/L (3.5-5.1) Chloride Level 106 mmol/L (98-107) Carbon Dioxide Level 27 mmol/L (21-32) Anion Gap 8 (6-14) Blood Urea Nitrogen 32 mg/dL (7-20) Creatinine 1.3 mg/dL (0.6-1.0) Estimated GFR (Cockcroft-Gault) 42.2 Glucose Level 99 mg/dL (70-99) Calcium Level 9.0 mg/dL (8.5-10.1) Magnesium Level 1.9 mg/dL (1.8-2.4) Troponin I Quantitative < 0.017 ng/mL (0.000-0.055) < 0.017 ng/mL (0.000-0.055) < 0.017 ng/mL (0.000-0.055) LW-Esi-J-Type Natriuretic Peptide 954 pg/mL (0-124) Urine Collection Type Unknown Urine Color Yellow Urine Clarity Clear Urine pH 5.0 Urine Specific [place] 1.020 Urine Protein 100 mg/dL (NEG-TRACE) Urine Glucose (UA) Negative mg/dL (NEG) Urine Ketones (Stick) Negative mg/dL (NEG) Urine Blood Trace (NEG) Urine Nitrite Negative (NEG) Urine Bilirubin Negative (NEG) Urine Urobilinogen Dipstick 0.2 mg/dL (0.2 mg/dL) Urine Leukocyte Esterase Negative (NEG) Urine RBC 1-2 /HPF (0-2) Urine WBC 1-4 /HPF (0-4) Urine Squamous Epithelial Cells Mod /LPF Urine Bacteria Few /HPF (0-FEW) Urine Mucus Slight /LPF Medications Current Medications Sodium Chloride 500 ml @ 250 mls/hr 1X ONCE IV Last administered on 12/22/17at 11:33; Start 12/22/17 at 11:15; Stop 12/22/17 at 13:14; Status DC Meclizine HCl (Antivert) 25 mg 1X ONCE PO Last administered on 12/22/17at 11:33 ; Start 12/22/17 at 11:30; Stop 12/22/17 at 11:31; Status DC Prochlorperazine Edisylate (Compazine) 10 mg 1X ONCE IV Last administered on at 13:50; Start 12/22/17 at 13:00; Stop 12/22/17 at 13:04; Status DC Diphenhydramine HCl (Benadryl) 12.5 mg 1X ONCE IVP Last administered on at 13:49; Start 12/22/17 at 13:00; Stop 12/22/17 at 13:04; Status DC Ondansetron HCl (Zofran) 4 mg PRN Q8HRS PRN IV NAUSEA/VOMITING; Start 12/22/17 at 13:15; Stop 12/23/17 at 13:14 Acetaminophen (Tylenol) 650 mg PRN Q4HRS PRN PO FEVER Last administered on at 14:41; Start 12/22/17 at 13:15; Stop 12/23/17 at 13:14 Meclizine HCl (Antivert) 25 mg PRN TID PRN PO Vertigo symptoms; Start 12/22/17 at 13:15; Stop 12/22/17 at 21:08; Status DC Aspirin (Children'S Aspirin) 81 mg HS PO Last administered on 12/22/17at 20:42; Start 12/22/17 at 21:00 Carvedilol (Coreg) 6.25 mg BIDWMEALS PO Last administered on 12/22/17at 18:39; Start 12/22/17 at 18:30 Ascorbic Acid (Vitamin C) 1,000 mg QHS PO Last administered on 12/22/17at 20:42; Start 12/22/17 at 21:00 Vitamin D (Vitamin D3) 2,000 unit QHS PO ; Start 12/23/17 at 09:00 Fluticasone Propionate (Flonase) 2 spray DAILY NS ; Start 12/23/17 at 09:00 Methylprednisolone (Medrol) 8 mg BID PO Last administered on 12/22/17at 20:42; Start 12/22/17 at 09:00; Stop 12/22/17 at 21:01; Status DC Methylprednisolone (Medrol) 4 mg BIDPCLD PO Last administered on 12/22/17at 18:40 ; Start 12/22/17 at 12:30; Stop 12/22/17 at 18:18; Status DC Methylprednisolone (Medrol) 4 mg TIDPC PO ; Start 12/23/17 at 08:30; Stop at 17:31 Methylprednisolone (Medrol) 8 mg QHS PO ; Start 12/23/17 at 21:00; Stop 12/23/17 at 21:01 Methylprednisolone (Medrol) 4 mg QIDAFTMEAL PO ; Start 12/24/17 at 09:00; Stop at 21:01 Methylprednisolone (Medrol) 4 mg TID PO ; Start 12/25/17 at 09:00; Stop 12/25/17 at 21:01 Methylprednisolone (Medrol) 4 mg BID PO ; Start 12/26/17 at 09:00; Stop 12/26/17 at 21:01 Methylprednisolone (Medrol) 4 mg DAILY PO ; Start 12/27/17 at 09:00; Stop at 09:01 Meclizine HCl (Antivert) 12.5 mg PRN Q6HRS PRN PO DIZZINESS; Start 12/22/17 at 21:00 Enoxaparin Sodium (Lovenox 40mg Syringe) 40 mg Q24H SQ ; Start 12/22/17 at 22:00 Active Scripts Active Reported Vitamin D (Cholecalciferol (Vitamin D3)) 2,000 Unit Capsule 1 Cap PO HS Flonase Allergy Relief (Fluticasone Propionate) 9.9 Ml [place].susp 2 Sprays NS DAILY Vitamin C (Ascorbic Acid) 1,000 Mg Tablet 1,000 Mg PO HS Aspirin 81 Mg Tab.chew 1 Tab PO HS Coreg (Carvedilol) 6.25 Mg Tablet 1 Tab PO BID Vitals/I & O Vital Sign - Last 24 Hours 12/22/17 12/22/17 12/22/17 12/22/17 10:15 10:50 11:20 11:50 Temp 98.1 98.1 Pulse 84 78 74 74 Resp 18 20 20 18 B/P (MAP) 158/87 (110) Pulse Ox 98 100 99 99 O2 Delivery Room Air 12/22/17 12/22/17 12/22/17 12/22/17 12:24 12:50 13:23 13:53 Pulse 78 76 80 78 Resp 20 20 18 18 Pulse Ox 99 100 98 97 12/22/17 12/22/17 12/22/17 12/22/17 15:00 18:39 19:00 20:00 Temp 97.6 98.1 97.6 98.1 Pulse 75 75 82 Resp 20 20 B/P (MAP) 145/94 (111) 145/94 171/81 (111) Pulse Ox 95 96 O2 Delivery Room Air Room Air Room Air 12/22/17 12/23/17 23:00 03:00 Temp 98.1 98.1 98.1 98.1 Pulse 69 72 Resp 20 20 B/P (MAP) 151/78 (102) 145/83 (103) Pulse Ox 93 98 O2 Delivery Room Air Room Air Intake and Output 12/22/17 12/22/17 12/23/17 15:00 23:00 07:00 Intake Total 500 ml 800 ml 480 ml Balance 500 ml 800 ml 480 ml MILLI CORLEY MD Dec 23, 2017 04:55
[2017-12-23 07:00] VITALS: BP 143/96
--- NOTE | 2017-12-23 08:15 | RAD ---
Carotid doppler ultrasound History: Lightheaded, dizziness, presyncope Multiple grayscale, color, and duplex spectral analysis waveform sonographic images were acquired of the carotid, subclavian, and vertebral arteries. Comparison: None Findings: RIGHT: PSV cm/sec EDV cm/sec Common carotid artery 65 27 Maximal internal carotid artery 79 38 External carotid artery 85 Vertebral artery 51 ICA/CCA ratio 1.2 LEFT: PSV cm/sec EDV cm/sec Common carotid artery 66 28 Maximum internal carotid artery 67 26 External carotid artery 47 Vertebral artery 32 ICA/CCA ratio 1.0 Velocities used to determine stenosis are known to correlate with NASCET angiographic criteria. There is antegrade flow in the bilateral vertebral arteries. No significant stenosis is demonstrated on grayscale or color images. Impression: 1. There is no evidence of a hemodynamically significant stenosis. Electronically signed by: Bhavesh Camacho MD (12/23/2017 8:12 AM) [id number]
[2017-12-23 08:45] LABS: BASO % 0 % (0-3); EOS % 0 % (0-3); HEMATOCRIT 37.5 % (36.0-47.0); HEMOGLOBIN 12.9 g/dL (12.0-15.5); LYMPH # 0.6 x10^3/uL (1.0-4.8); LYMPH % 10 % (24-48); MEAN CORPUSCULAR HEMOGLOBIN 28 pg (25-35); MEAN CORPUSCULAR HGB CONC 34 g/dL (31-37); MEAN CORPUSCULAR VOLUME 83 fL (79-100); MONO # 0.1 x10^3/uL (0.0-1.1); MONO % 2 % (0-9); NEUT # 5.1 x10^3uL (1.8-7.7); NEUT % 88 % (31-73); PLATELET COUNT 223 x10^3/uL (140-400); RED BLOOD COUNT 4.54 x10^6/uL (3.50-5.40); RED CELL DISTRIBUTION WIDTH 13.7 % (11.5-14.5); WHITE BLOOD COUNT 5.8 x10^3/uL (4.0-11.0)
[2017-12-23 09:04] LABS: CALCIUM 9.3 mg/dL (8.5-10.1); CREATININE 1.2 mg/dL (0.6-1.0); GFR 46.3; POTASSIUM 4.2 mmol/L (3.5-5.1)
[2017-12-23] MEDS: methylPREDNISolone 4 MG TABLET. PO SCH ×3 (09:20→18:43)
[2017-12-23] MEDS: CHOLECALCIFEROL (VITAMIN D3) 1,000 UNIT TABLET PO SCH ×2 (09:21→20:18)
[2017-12-23] MEDS: CARVEDILOL 6.25 MG TABLET. PO SCH ×2 (09:21→18:44)
[2017-12-23] MEDS: FLUTICASONE 50MCG/NASAL SPRAY 16GM BOTTLE. NS SCH (09:35)
[2017-12-23] MEDS: ACETAMINOPHEN 325 MG TABLET. PO PRN (10:28)
[2017-12-23 11:00] VITALS: BP 150/84
[2017-12-23 11:07] LABS: % ATYL 1 % (0-0); % BANDS 7 % (0-9); % LYMPHS 10 % (24-48); % MONOS 2 % (0-10); % SEGS 80 % (35-66); PLT ESTIMATE ADEQUATE (ADEQUATE)
[2017-12-23 15:00] VITALS: BP 167/85
[2017-12-23 19:00] VITALS: BP 151/103
[2017-12-23] MEDS: ASCORBIC ACID 500 MG TABLET PO SCH (20:18)
[2017-12-23] MEDS: ASPIRIN CHEWABLE 81 MG TABLET. PO SCH (20:18)
[2017-12-23] MEDS: ENOXAPARIN 40 MG/0.4 ML SYRINGE. SQ SCH (20:18)
[2017-12-23] MEDS ORDERED: methylPREDNISolone 4 MG TABLET. PO SCH (21:00)
[2017-12-23 23:00] VITALS: BP 143/88
[2017-12-24 03:00] VITALS: BP 156/93
[2017-12-24 07:00] VITALS: BP 167/107
[2017-12-24] MEDS: CARVEDILOL 6.25 MG TABLET. PO SCH ×2 (08:51→17:00)
[2017-12-24] MEDS: methylPREDNISolone 4 MG TABLET. PO SCH ×3 (08:51→18:00)
[2017-12-24] MEDS: FLUTICASONE 50MCG/NASAL SPRAY 16GM BOTTLE. NS SCH (08:52)
[2017-12-24] MEDS: ENOXAPARIN 40 MG/0.4 ML SYRINGE. SQ SCH (08:52)
[2017-12-24 11:00] VITALS: BP 151/100
--- NOTE | 2017-12-24 12:12 | PDOC ---
PROGRESS NOTES History of Present Illness History of Present Illness Assessment/Plan Assessment/Plan impression 1. palpitations concerning for arrythmia 2. hx CARDIOMYOPATHY 3. MORBID OBESITY PLAN 1. Consult 2. admit tele 3, iv fluid support 4. meclizine 25 mg po tid 5. bedrest 6. sq lovenox dvt prophylaxis 7. doppler carotids Vitals Vitals Vital Signs Date Time Temp Pulse Resp B/P (MAP) Pulse Ox O2 Delivery O2 Flow Rate FiO2 12/24/17 11:00 98.1 84 18 151/100 (117) 96 Room Air 98.1 Physical Exam General: Alert, Oriented X3, Cooperative, No acute distress, moderate distress Heart: Regular rate, Normal S1, Normal S2 Lungs: Clear Abdomen: Soft, Other (obese) Extremities: No clubbing, No cyanosis Skin: No breakdown Assessment and Plan Assessmemt and Plan Problems Medical Problems: (1) Palpitations Status: Acute (2) Vertigo Status: Acute Comment Review of Relevant I have reviewed the following items nicole (where applicable) has been applied. Labs Laboratory Tests Test 12/22/17 16:15 12/22/17 18:45 12/23/17 08:05 Troponin I Quantitative < 0.017 ng/mL (0.000-0.055) < 0.017 ng/mL (0.000-0.055) White Blood Count 5.8 x10^3/uL (4.0-11.0) Red Blood Count 4.54 x10^6/uL (3.50-5.40) Hemoglobin 12.9 g/dL (12.0-15.5) Hematocrit 37.5 % (36.0-47.0) Mean Corpuscular Volume 83 fL (79-100) Mean Corpuscular Hemoglobin 28 pg (25-35) Mean Corpuscular Hemoglobin Concent 34 g/dL (31-37) Red Cell Distribution Width 13.7 % (11.5-14.5) Platelet Count 223 x10^3/uL (140-400) Neutrophils (%) (Auto) 88 % (31-73) Lymphocytes (%) (Auto) 10 % (24-48) Monocytes (%) (Auto) 2 % (0-9) Eosinophils (%) (Auto) 0 % (0-3) Basophils (%) (Auto) 0 % (0-3) Neutrophils # (Auto) 5.1 x10^3uL (1.8-7.7) Lymphocytes # (Auto) 0.6 x10^3/uL (1.0-4.8) Monocytes # (Auto) 0.1 x10^3/uL (0.0-1.1) Eosinophils # (Auto) 0.0 x10^3/uL (0.0-0.7) Basophils # (Auto) 0.0 x10^3/uL (0.0-0.2) Segmented Neutrophils % 80 % (35-66) Band Neutrophils % 7 % (0-9) Lymphocytes % 10 % (24-48) Atypical Lymphocytes % (Manual) 1 % (0-0) Monocytes % 2 % (0-10) Platelet Estimate Adequate (ADEQUATE) Sodium Level 139 mmol/L (136-145) Potassium Level 4.2 mmol/L (3.5-5.1) Chloride Level 106 mmol/L (98-107) Carbon Dioxide Level 23 mmol/L (21-32) Anion Gap 10 (6-14) Blood Urea Nitrogen 28 mg/dL (7-20) Creatinine 1.2 mg/dL (0.6-1.0) Estimated GFR (Cockcroft-Gault) 46.3 Glucose Level 129 mg/dL (70-99) Calcium Level 9.3 mg/dL (8.5-10.1) Medications Current Medications Sodium Chloride 500 ml @ 250 mls/hr 1X ONCE IV Last administered on 12/22/17at 11:33; Start 12/22/17 at 11:15; Stop 12/22/17 at 13:14; Status DC Meclizine HCl (Antivert) 25 mg 1X ONCE PO Last administered on 12/22/17at 11:33 ; Start 12/22/17 at 11:30; Stop 12/22/17 at 11:31; Status DC Prochlorperazine Edisylate (Compazine) 10 mg 1X ONCE IV Last administered on at 13:50; Start 12/22/17 at 13:00; Stop 12/22/17 at 13:04; Status DC Diphenhydramine HCl (Benadryl) 12.5 mg 1X ONCE IVP Last administered on at 13:49; Start 12/22/17 at 13:00; Stop 12/22/17 at 13:04; Status DC Ondansetron HCl (Zofran) 4 mg PRN Q8HRS PRN IV NAUSEA/VOMITING; Start 12/22/17 at 13:15; Stop 12/23/17 at 13:14; Status DC Acetaminophen (Tylenol) 650 mg PRN Q4HRS PRN PO FEVER Last administered on 10:28; Start 12/22/17 at 13:15; Stop 12/23/17 at 13:14; Status DC Meclizine HCl (Antivert) 25 mg PRN TID PRN PO Vertigo symptoms; Start 12/22/17 at 13:15; Stop 12/22/17 at 21:08; Status DC Aspirin (Children'S Aspirin) 81 mg HS PO Last administered on 12/23/17 20:18; Start 12/22/17 at 21:00 Carvedilol (Coreg) 6.25 mg BIDWMEALS PO Last administered on 12/24/17at 08:51; Start 12/22/17 at 18:30 Ascorbic Acid (Vitamin C) 1,000 mg QHS PO Last administered on 12/23/17 20:18; Start 12/22/17 at 21:00 Vitamin D (Vitamin D3) 2,000 unit QHS PO Last administered on 12/23/17 20:18; Start 12/23/17 at 09:00 Fluticasone Propionate (Flonase) 2 spray DAILY NS Last administered on 08:52; Start 12/23/17 at 09:00 Methylprednisolone (Medrol) 8 mg BID PO Last administered on 12/22/17 20:42; Start 12/22/17 at 09:00; Stop 12/22/17 at 21:01; Status DC Methylprednisolone (Medrol) 4 mg BIDPCLD PO Last administered on 12/22/17 18:40 ; Start 12/22/17 at 12:30; Stop 12/22/17 at 18:18; Status DC Methylprednisolone (Medrol) 4 mg TIDPC PO Last administered on 12/23/17 18:43; Start 12/23/17 at 08:30; Stop 12/23/17 at 17:31; Status DC Methylprednisolone (Medrol) 8 mg QHS PO Last administered on 12/23/17at 20:18; Start 12/23/17 at 21:00; Stop 12/23/17 at 21:01; Status DC Methylprednisolone (Medrol) 4 mg QIDAFTMEAL PO Last administered on 12/24/17at 08 :51; Start 12/24/17 at 09:00; Stop 12/24/17 at 21:01 Methylprednisolone (Medrol) 4 mg TID PO ; Start 12/25/17 at 09:00; Stop 12/25/17 at 21:01 Methylprednisolone (Medrol) 4 mg BID PO ; Start 12/26/17 at 09:00; Stop 12/26/17 at 21:01 Methylprednisolone (Medrol) 4 mg DAILY PO ; Start 12/27/17 at 09:00; Stop at 09:01 Meclizine HCl (Antivert) 12.5 mg PRN Q6HRS PRN PO DIZZINESS Last administered on 12/23/17at 20:18; Start 12/22/17 at 21:00 Enoxaparin Sodium (Lovenox 40mg Syringe) 40 mg Q24H SQ ; Start 12/22/17 at 22:00 ; Stop 12/23/17 at 12:11; Status DC Enoxaparin Sodium (Lovenox 40mg Syringe) 40 mg Q12HR SQ ; Start 12/23/17 at 21:00 Active Scripts Active Reported Vitamin D (Cholecalciferol (Vitamin D3)) 2,000 Unit Capsule 1 Cap PO HS Flonase Allergy Relief (Fluticasone Propionate) 9.9 Ml [place].susp 2 Sprays NS DAILY Vitamin C (Ascorbic Acid) 1,000 Mg Tablet 1,000 Mg PO HS Aspirin 81 Mg Tab.chew 1 Tab PO HS Coreg (Carvedilol) 6.25 Mg Tablet 1 Tab PO BID Vitals/I & O Vital Sign - Last 24 Hours 12/23/17 12/23/17 12/23/17 12/23/17 15:00 18:44 19:00 20:00 Temp 97.9 98.4 97.9 98.4 Pulse 76 97 87 Resp 20 18 B/P (MAP) 167/85 (112) 148/85 151/103 (119) Pulse Ox 96 97 O2 Delivery Room Air Room Air Room Air 9/09/0412/24/17 12/24/17 12/24/17 23:00 03:00 07:00 08:51 Temp 97.8 97.7 98.3 97.8 97.7 98.3 Pulse 63 67 63 63 Resp 18 17 18 B/P (MAP) 143/88 (106) 156/93 (114) 167/107 (127) 167/107 Pulse Ox 95 99 100 O2 Delivery Room Air Room Air Room Air 12/24/17 11:00 Temp 98.1 98.1 Pulse 84 Resp 18 B/P (MAP) 151/100 (117) Pulse Ox 96 O2 Delivery Room Air Intake and Output 12/23/17 12/23/17 12/24/17 15:00 23:00 07:00 Intake Total 300 ml 680 ml 880 ml Balance 300 ml 680 ml 880 ml MILLI CORLEY MD Dec 24, 2017 12:12
[2017-12-24 15:00] VITALS: BP 152/101
[2017-12-24] MEDS ORDERED: LISINOPRIL 5 MG TABLET. PO SCH (16:00)
[2017-12-24] MEDS ORDERED: hydroCHLOROthiazide 12.5 MG CAPSULE PO SCH (16:00)
--- NOTE | 2017-12-24 16:07 | PDOC3 ---
Discharge Summary Date of Admission: Dec 22, 2017 Date of Discharge: Dec 24, 2017 Follow-Up: 3-5 days Admitting Diagnosis comment: Assessment/Plan Assessment/Plan impression 1. palpitations , benign 2. hx CARDIOMYOPATHY 3. MORBID OBESITY 4. vertigo PLAN 1. d/c is ok with 2. admit tele 4. meclizine 25 mg po tid 5. bedrest 6. sq lovenox dvt prophylaxis 7. doppler carotids ok 8. add hctz lisinopril 2.5 mg po daily Vitals Vitals Vital Signs Date Time Temp Pulse Resp B/P (MAP) Pulse Ox O2 Delivery O2 Flow Rate FiO2 12/24/17 11:00 98.1 84 18 151/100 (117) 96 Room Air 98.1 Physical Exam General: Alert, Oriented X3, Cooperative, No acute distress, Heart: Regular rate, Normal S1, Normal S2 Lungs: Clear Abdomen: Soft, Other (obese) Extremities: No clubbing, No cyanosis Skin: No breakdown FINAL DIAGNOSIS Problems Medical Problems: (1) Palpitations Status: Acute (2) Vertigo Status: Acute Brief Hospital Course Ms. Daniel is a 57 old [sex] who presented with [ ] Discharge Medications Current Medications Sodium Chloride 500 ml @ 250 mls/hr 1X ONCE IV Last administered on 12/22/17at 11:33; Start 12/22/17 at 11:15; Stop 12/22/17 at 13:14; Status DC Meclizine HCl (Antivert) 25 mg 1X ONCE PO Last administered on 12/22/17at 11:33 ; Start 12/22/17 at 11:30; Stop 12/22/17 at 11:31; Status DC Prochlorperazine Edisylate (Compazine) 10 mg 1X ONCE IV Last administered on at 13:50; Start 12/22/17 at 13:00; Stop 12/22/17 at 13:04; Status DC Diphenhydramine HCl (Benadryl) 12.5 mg 1X ONCE IVP Last administered on at 13:49; Start 12/22/17 at 13:00; Stop 12/22/17 at 13:04; Status DC Ondansetron HCl (Zofran) 4 mg PRN Q8HRS PRN IV NAUSEA/VOMITING; Start 12/22/17 at 13:15; Stop 12/23/17 at 13:14; Status DC Acetaminophen (Tylenol) 650 mg PRN Q4HRS PRN PO FEVER Last administered on at 10:28; Start 12/22/17 at 13:15; Stop 12/23/17 at 13:14; Status DC Meclizine HCl (Antivert) 25 mg PRN TID PRN PO Vertigo symptoms; Start 12/22/17 at 13:15; Stop 12/22/17 at 21:08; Status DC Aspirin (Children'S Aspirin) 81 mg HS PO Last administered on 12/23/17 20:18; Start 12/22/17 at 21:00 Carvedilol (Coreg) 6.25 mg BIDWMEALS PO Last administered on 12/24/17 08:51; Start 12/22/17 at 18:30 Ascorbic Acid (Vitamin C) 1,000 mg QHS PO Last administered on 12/23/17 20:18; Start 12/22/17 at 21:00 Vitamin D (Vitamin D3) 2,000 unit QHS PO Last administered on 12/23/17 20:18; Start 12/23/17 at 09:00 Fluticasone Propionate (Flonase) 2 spray DAILY NS Last administered on 08:52; Start 12/23/17 at 09:00 Methylprednisolone (Medrol) 8 mg BID PO Last administered on 12/22/17 20:42; Start 12/22/17 at 09:00; Stop 12/22/17 at 21:01; Status DC Methylprednisolone (Medrol) 4 mg BIDPCLD PO Last administered on 12/22/17at 18:40 ; Start 12/22/17 at 12:30; Stop 12/22/17 at 18:18; Status DC Methylprednisolone (Medrol) 4 mg TIDPC PO Last administered on 12/23/17 18:43; Start 12/23/17 at 08:30; Stop 12/23/17 at 17:31; Status DC Methylprednisolone (Medrol) 8 mg QHS PO Last administered on 12/23/17 20:18; Start 12/23/17 at 21:00; Stop 12/23/17 at 21:01; Status DC Methylprednisolone (Medrol) 4 mg QIDAFTMEAL PO Last administered on 12/24/17at 15 :03; Start 12/24/17 at 09:00; Stop 12/24/17 at 21:01 Methylprednisolone (Medrol) 4 mg TID PO ; Start 12/25/17 at 09:00; Stop 12/25/17 at 21:01 Methylprednisolone (Medrol) 4 mg BID PO ; Start 12/26/17 at 09:00; Stop 12/26/17 at 21:01 Methylprednisolone (Medrol) 4 mg DAILY PO ; Start 12/27/17 at 09:00; Stop at 09:01 Meclizine HCl (Antivert) 12.5 mg PRN Q6HRS PRN PO DIZZINESS Last administered on 12/23/17at 20:18; Start 12/22/17 at 21:00 Enoxaparin Sodium (Lovenox 40mg Syringe) 40 mg Q24H SQ ; Start 12/22/17 at 22:00 ; Stop 12/23/17 at 12:11; Status DC Enoxaparin Sodium (Lovenox 40mg Syringe) 40 mg Q12HR SQ ; Start 12/23/17 at 21:00 Hydrochlorothiazide (Microzide) 12.5 mg DAILY PO ; Start 12/24/17 at 16:00 Lisinopril (Prinivil) 2.5 mg DAILY PO ; Start 12/24/17 at 16:00 Active Scripts Active Reported Vitamin D (Cholecalciferol (Vitamin D3)) 2,000 Unit Capsule 1 Cap PO HS Flonase Allergy Relief (Fluticasone Propionate) 9.9 Ml [place].susp 2 Sprays NS DAILY Vitamin C (Ascorbic Acid) 1,000 Mg Tablet 1,000 Mg PO HS Aspirin 81 Mg Tab.chew 1 Tab PO HS Coreg (Carvedilol) 6.25 Mg Tablet 1 Tab PO BID Vital Signs Vital Signs Date Time Temp Pulse Resp B/P (MAP) Pulse Ox O2 Delivery O2 Flow Rate FiO2 12/24/17 15:00 97.2 86 18 152/101 (118) 97 Room Air 97.2 Labs Laboratory Tests Test 12/22/17 16:15 12/22/17 18:45 12/23/17 08:05 Troponin I Quantitative < 0.017 ng/mL (0.000-0.055) < 0.017 ng/mL (0.000-0.055) White Blood Count 5.8 x10^3/uL (4.0-11.0) Red Blood Count 4.54 x10^6/uL (3.50-5.40) Hemoglobin 12.9 g/dL (12.0-15.5) Hematocrit 37.5 % (36.0-47.0) Mean Corpuscular Volume 83 fL (79-100) Mean Corpuscular Hemoglobin 28 pg (25-35) Mean Corpuscular Hemoglobin Concent 34 g/dL (31-37) Red Cell Distribution Width 13.7 % (11.5-14.5) Platelet Count 223 x10^3/uL (140-400) Neutrophils (%) (Auto) 88 % (31-73) Lymphocytes (%) (Auto) 10 % (24-48) Monocytes (%) (Auto) 2 % (0-9) Eosinophils (%) (Auto) 0 % (0-3) Basophils (%) (Auto) 0 % (0-3) Neutrophils # (Auto) 5.1 x10^3uL (1.8-7.7) Lymphocytes # (Auto) 0.6 x10^3/uL (1.0-4.8) Monocytes # (Auto) 0.1 x10^3/uL (0.0-1.1) Eosinophils # (Auto) 0.0 x10^3/uL (0.0-0.7) Basophils # (Auto) 0.0 x10^3/uL (0.0-0.2) Segmented Neutrophils % 80 % (35-66) Band Neutrophils % 7 % (0-9) Lymphocytes % 10 % (24-48) Atypical Lymphocytes % (Manual) 1 % (0-0) Monocytes % 2 % (0-10) Platelet Estimate Adequate (ADEQUATE) Sodium Level 139 mmol/L (136-145) Potassium Level 4.2 mmol/L (3.5-5.1) Chloride Level 106 mmol/L (98-107) Carbon Dioxide Level 23 mmol/L (21-32) Anion Gap 10 (6-14) Blood Urea Nitrogen 28 mg/dL (7-20) Creatinine 1.2 mg/dL (0.6-1.0) Estimated GFR (Cockcroft-Gault) 46.3 Glucose Level 129 mg/dL (70-99) Calcium Level 9.3 mg/dL (8.5-10.1) Allergies Allergies Coded Allergies Type Severity Reaction Last Updated Verified gold Au 198 Allergy Severe SEVERE RASH DEVELOPS OPEN SORES 04/10/17 Yes nickel Allergy Severe SEVERE RASH DEVELOPS TO OPEN SORES 04/10/17 Yes adhesive Allergy Intermediate SILK AND PAPER TAPE CAUSE A RASH 04/10/17 Yes sulfamethoxazole Allergy Intermediate 04/10/17 Yes trimethoprim Allergy Intermediate 04/10/17 Yes erythromycin base Adverse Reaction Intermediate GASTRIC DISTRESS 04/10/17 Yes Disposition/Orders: D/C to Home Patient Instructions Comparison: None Findings: RIGHT: PSV cm/sec EDV cm/sec Common carotid artery 65 27 Maximal internal carotid artery 79 38 External carotid artery 85 Vertebral artery 51 ICA/CCA ratio 1.2 LEFT: PSV cm/sec EDV cm/sec Common carotid artery 66 28 Maximum internal carotid artery 67 26 External carotid artery 47 Vertebral artery 32 ICA/CCA ratio 1.0 Velocities used to determine stenosis are known to correlate with NASCET angiographic criteria. There is antegrade flow in the bilateral vertebral arteries. No significant stenosis is demonstrated on grayscale or color images. Impression: 1. There is no evidence of a hemodynamically significant stenosis. Electronically signed by: Bhavesh Camacho MD (12/23/2017 8:12 AM) [facility] MILLI CORLEY MD Dec 24, 2017 16:06
--- NOTE | 2017-12-24 16:08 | DISCH ---
DISCHARGE INSTRUCTIONS Condition on Discharge Condition on Discharge: Stable Activity After Discharge Activity Instructions for Disc: No restrictions, Resume previous activity Lifting Instructions after Dis: No pulling or pushing Driving Instructions after Dis: Do not drive today Weight Bearing Status after Di: No restrictions Diet after Discharge Diet after Discharge: Cardiac Checks after Discharge Checks after discharge: Check blood press - daily Contacting the DRJaison after DC Call your doctor for: If your condition worsens Treatment/Equipment after DC Adaptive Equipment Issued: None MILLI CORLEY MD Dec 24, 2017 16:08
[2017-12-24] MEDS ORDERED: LISI-338 PO (16:12)
[2017-12-24] MEDS ORDERED: HYDR12.53 PO (16:12)
[2017-12-24] MEDS ORDERED: MECL12.52 PO (16:12)
--- NOTE | 2017-12-24 16:56 | PDOC ---
PROGRESS NOTES Subjective Subjective Patient feels better today. Objective Objective Vital Signs Date Time Temp Pulse Resp B/P (MAP) Pulse Ox O2 Delivery O2 Flow Rate FiO2 12/24/17 16:27 82 162/101 12/24/17 15:00 97.2 18 97 Room Air 97.2 Intake and Output 12/24/17 07:00 Intake Total 1860 ml Balance 1860 ml Intake Oral 1860 ml # Voids 4 Physical Exam Physical Exam No changes in cardiac exam Assessment Assessment Patient compensated cardiac-barber. She may need further adjustments on her blood pressure medications but we can do this as an outpatient. She may be discharged today. I would recommend to discharge her home on a steroid taper treatment. Comment Review of Relevant I have reviewed the following items nicole (where applicable) has been applied. Labs Laboratory Tests Test 12/22/17 18:45 12/23/17 08:05 Troponin I Quantitative < 0.017 ng/mL (0.000-0.055) White Blood Count 5.8 x10^3/uL (4.0-11.0) Red Blood Count 4.54 x10^6/uL (3.50-5.40) Hemoglobin 12.9 g/dL (12.0-15.5) Hematocrit 37.5 % (36.0-47.0) Mean Corpuscular Volume 83 fL (79-100) Mean Corpuscular Hemoglobin 28 pg (25-35) Mean Corpuscular Hemoglobin Concent 34 g/dL (31-37) Red Cell Distribution Width 13.7 % (11.5-14.5) Platelet Count 223 x10^3/uL (140-400) Neutrophils (%) (Auto) 88 % (31-73) Lymphocytes (%) (Auto) 10 % (24-48) Monocytes (%) (Auto) 2 % (0-9) Eosinophils (%) (Auto) 0 % (0-3) Basophils (%) (Auto) 0 % (0-3) Neutrophils # (Auto) 5.1 x10^3uL (1.8-7.7) Lymphocytes # (Auto) 0.6 x10^3/uL (1.0-4.8) Monocytes # (Auto) 0.1 x10^3/uL (0.0-1.1) Eosinophils # (Auto) 0.0 x10^3/uL (0.0-0.7) Basophils # (Auto) 0.0 x10^3/uL (0.0-0.2) Segmented Neutrophils % 80 % (35-66) Band Neutrophils % 7 % (0-9) Lymphocytes % 10 % (24-48) Atypical Lymphocytes % (Manual) 1 % (0-0) Monocytes % 2 % (0-10) Platelet Estimate Adequate (ADEQUATE) Sodium Level 139 mmol/L (136-145) Potassium Level 4.2 mmol/L (3.5-5.1) Chloride Level 106 mmol/L (98-107) Carbon Dioxide Level 23 mmol/L (21-32) Anion Gap 10 (6-14) Blood Urea Nitrogen 28 mg/dL (7-20) Creatinine 1.2 mg/dL (0.6-1.0) Estimated GFR (Cockcroft-Gault) 46.3 Glucose Level 129 mg/dL (70-99) Calcium Level 9.3 mg/dL (8.5-10.1) Medications Current Medications Sodium Chloride 500 ml @ 250 mls/hr 1X ONCE IV Last administered on 12/22/17at 11:33; Start 12/22/17 at 11:15; Stop 12/22/17 at 13:14; Status DC Meclizine HCl (Antivert) 25 mg 1X ONCE PO Last administered on 12/22/17at 11:33 ; Start 12/22/17 at 11:30; Stop 12/22/17 at 11:31; Status DC Prochlorperazine Edisylate (Compazine) 10 mg 1X ONCE IV Last administered on at 13:50; Start 12/22/17 at 13:00; Stop 12/22/17 at 13:04; Status DC Diphenhydramine HCl (Benadryl) 12.5 mg 1X ONCE IVP Last administered on at 13:49; Start 12/22/17 at 13:00; Stop 12/22/17 at 13:04; Status DC Ondansetron HCl (Zofran) 4 mg PRN Q8HRS PRN IV NAUSEA/VOMITING; Start 12/22/17 at 13:15; Stop 12/23/17 at 13:14; Status DC Acetaminophen (Tylenol) 650 mg PRN Q4HRS PRN PO FEVER Last administered on 10:28; Start 12/22/17 at 13:15; Stop 12/23/17 at 13:14; Status DC Meclizine HCl (Antivert) 25 mg PRN TID PRN PO Vertigo symptoms; Start 12/22/17 at 13:15; Stop 12/22/17 at 21:08; Status DC Aspirin (Children'S Aspirin) 81 mg HS PO Last administered on 12/23/17 20:18; Start 12/22/17 at 21:00 Carvedilol (Coreg) 6.25 mg BIDWMEALS PO Last administered on 12/24/17 08:51; Start 12/22/17 at 18:30 Ascorbic Acid (Vitamin C) 1,000 mg QHS PO Last administered on 12/23/17 20:18; Start 12/22/17 at 21:00 Vitamin D (Vitamin D3) 2,000 unit QHS PO Last administered on 12/23/17 20:18; Start 12/23/17 at 09:00 Fluticasone Propionate (Flonase) 2 spray DAILY NS Last administered on 08:52; Start 12/23/17 at 09:00 Methylprednisolone (Medrol) 8 mg BID PO Last administered on 12/22/17 20:42; Start 12/22/17 at 09:00; Stop 12/22/17 at 21:01; Status DC Methylprednisolone (Medrol) 4 mg BIDPCLD PO Last administered on 12/22/17 18:40 ; Start 12/22/17 at 12:30; Stop 12/22/17 at 18:18; Status DC Methylprednisolone (Medrol) 4 mg TIDPC PO Last administered on 12/23/17 18:43; Start 12/23/17 at 08:30; Stop 12/23/17 at 17:31; Status DC Methylprednisolone (Medrol) 8 mg QHS PO Last administered on 12/23/17 20:18; Start 12/23/17 at 21:00; Stop 12/23/17 at 21:01; Status DC Methylprednisolone (Medrol) 4 mg QIDAFTMEAL PO Last administered on 12/24/17at 15 :03; Start 12/24/17 at 09:00; Stop 12/24/17 at 21:01 Methylprednisolone (Medrol) 4 mg TID PO ; Start 12/25/17 at 09:00; Stop 12/25/17 at 21:01 Methylprednisolone (Medrol) 4 mg BID PO ; Start 12/26/17 at 09:00; Stop 12/26/17 at 21:01 Methylprednisolone (Medrol) 4 mg DAILY PO ; Start 12/27/17 at 09:00; Stop at 09:01 Meclizine HCl (Antivert) 12.5 mg PRN Q6HRS PRN PO DIZZINESS Last administered on 12/23/17at 20:18; Start 12/22/17 at 21:00 Enoxaparin Sodium (Lovenox 40mg Syringe) 40 mg Q24H SQ ; Start 12/22/17 at 22:00 ; Stop 12/23/17 at 12:11; Status DC Enoxaparin Sodium (Lovenox 40mg Syringe) 40 mg Q12HR SQ ; Start 12/23/17 at 21:00 Hydrochlorothiazide (Microzide) 12.5 mg DAILY PO ; Start 12/24/17 at 16:00 Lisinopril (Prinivil) 2.5 mg DAILY PO Last administered on 12/24/17at 16:27; Start 12/24/17 at 16:00 Active Scripts Active Reported Vitamin D (Cholecalciferol (Vitamin D3)) 2,000 Unit Capsule 1 Cap PO HS Flonase Allergy Relief (Fluticasone Propionate) 9.9 Ml [place].susp 2 Sprays NS DAILY Vitamin C (Ascorbic Acid) 1,000 Mg Tablet 1,000 Mg PO HS Aspirin 81 Mg Tab.chew 1 Tab PO HS Coreg (Carvedilol) 6.25 Mg Tablet 1 Tab PO BID Vitals/I & O Vital Sign - Last 24 Hours 12/23/17 12/23/17 12/23/17 12/23/17 18:44 19:00 20:00 23:00 Temp 98.4 97.8 98.4 97.8 Pulse 97 87 63 Resp 18 18 B/P (MAP) 148/85 151/103 (119) 143/88 (106) Pulse Ox 97 95 O2 Delivery Room Air Room Air Room Air 12/24/17 12/24/17 12/24/17 12/24/17 03:00 07:00 08:51 11:00 Temp 97.7 98.3 98.1 97.7 98.3 98.1 Pulse 67 63 63 84 Resp 17 18 18 B/P (MAP) 156/93 (114) 167/107 (127) 167/107 151/100 (117) Pulse Ox 99 100 96 O2 Delivery Room Air Room Air Room Air 12/24/17 12/24/17 15:00 16:27 Temp 97.2 97.2 Pulse 86 82 Resp 18 B/P (MAP) 152/101 (118) 162/101 Pulse Ox 97 O2 Delivery Room Air Intake and Output 12/23/17 12/23/17 12/24/17 15:00 23:00 07:00 Intake Total 300 ml 680 ml 880 ml Balance 300 ml 680 ml 880 ml KAILA SARAH MD Dec 24, 2017 16:56
[2017-12-24 17:00] VITALS: BP 159/95
[2017-12-25] MEDS ORDERED: methylPREDNISolone 4 MG TABLET. PO SCH (09:00)
[2017-12-26] MEDS ORDERED: methylPREDNISolone 4 MG TABLET. PO SCH (09:00)
[2017-12-27] MEDS ORDERED: methylPREDNISolone 4 MG TABLET. PO SCH (09:00)
== END 2017-12-24 18:00 | disposition home or self-care (01) | DRG 309 ==
LOC: ER 09:59 → 5 NORTH 13:00
PROVIDERS: ADMIT Family Medicine; ATTEND Family Medicine
DX: R00.2 Palpitations (principal); Z68.42 Body mass index [BMI] 45.0-49.9, adult; I42.9 Cardiomyopathy, unspecified; E66.01 Morbid (severe) obesity due to excess calories; I11.0 Hypertensive heart disease with heart failure; I50.9 Heart failure, unspecified; J45.909 Unspecified asthma, uncomplicated; Z90.710 Acquired absence of both cervix and uterus; Z88.1 Allergy status to other antibiotic agents; Z88.8 Allergy status to other drugs, medicaments and biological substances; Z91.048 Other nonmedicinal substance allergy status
CPT/HCPCS: 36415; 70450; 71045; 80048; 81001; 83735; 83880; 84484; 85007; 85025; 93005; 93880; 96374; 96375; J0780; J1200; J7040; J7509; J8597; 99285-25

== ENCOUNTER 2018-04-16 12:47 | Emergency (ER) | payer OTHER ==
[~2018-04-16] VITALS: Ht 162.6 cm; Wt 120.7 kg
[~2018-04-16 12:47] MED LIST changes: +ASCO10002 PO; +CARV6.25 PO; +CHOL2000 PO; +FLUT9.9S NS; -HYDR-2758 PO; +HYDR-2761 PO; +HYDR12.575 PO; +LISI-338 PO; +LOSA-73 PO; -LOSA50TA2 PO; +MECL12.52 PO
[2018-04-16 14:07] LABS: BASO % 0 % (0-3); EOS % 0 % (0-3); HEMATOCRIT 38.1 % (36.0-47.0); HEMOGLOBIN 13.2 g/dL (12.0-15.5); LYMPH # 0.6 x10^3/uL (1.0-4.8); LYMPH % 8 % (24-48); MEAN CORPUSCULAR HEMOGLOBIN 29 pg (25-35); MEAN CORPUSCULAR HGB CONC 35 g/dL (31-37); MEAN CORPUSCULAR VOLUME 83 fL (79-100); MONO # 0.2 x10^3/uL (0.0-1.1); MONO % 3 % (0-9); NEUT # 5.9 x10^3uL (1.8-7.7); NEUT % 89 % (31-73); PLATELET COUNT 199 x10^3/uL (140-400); RED BLOOD COUNT 4.61 x10^6/uL (3.50-5.40); RED CELL DISTRIBUTION WIDTH 14.1 % (11.5-14.5); WHITE BLOOD COUNT 6.7 x10^3/uL (4.0-11.0)
[2018-04-16 14:12] LABS: CALCIUM 9.8 mg/dL (8.5-10.1); CREATININE 1.4 mg/dL (0.6-1.0); GFR 38.8; POTASSIUM 4.5 mmol/L (3.5-5.1)
[2018-04-16 14:17] LABS: ALBUMIN 3.8 g/dL (3.4-5.0); DIRECT BILIRUBIN 0.1 mg/dL (0.0-0.2); TOTAL BILIRUBIN 0.4 mg/dL (0.2-1.0); TOTAL PROTEIN 7.5 g/dL (6.4-8.2)
[2018-04-16 14:30] LABS: % BANDS 4 % (0-9); % LYMPHS 11 % (24-48); % MONOS 3 % (0-10); % SEGS 82 % (35-66); PLT ESTIMATE ADEQUATE (ADEQUATE)
--- NOTE | 2018-04-16 14:40 | EKG ---
[facility] [address] [place] [id number] Test Date: 2018-04-16 Test Time: 14:16:42 Pat Name: DESHAWN SCOTT Department: Room: Gender: F Pot Fisher: : 1960 Requested By: MINI COLÓN Order Number: [id number] Reading MD: Jose Barton Measurements Intervals [place] Rate: 68 P: 39 UT: 150 QRS: 28 QRSD: 100 T: 30 QT: 410 QTc: 436 Interpretive Statements SINUS RHYTHM NONSPECIFIC ST-T WAVE CHANGES Electronically Signed On 04-21-2018 15:19:32 ATHLETIC COORDINATOR by Jose Barton
[2018-04-16] MEDS ORDERED: IV NORMAL SALINE 500ML BAG 500 ML IV ONE (15:30)
[2018-04-16] MEDS ORDERED: ONDANSETRON PF 4 MG/2 ML VIAL. IV ONE (15:30)
--- NOTE | 2018-04-16 15:44 | PHYS DOC ---
Past Medical History Past Medical History: CHF, Hypertension, Other Additional Past Medical Histor: HEART DISEASE; cardiomyopathy Past Surgical History: , Hysterectomy Alcohol Use: None Drug Use: None Adult General Chief Complaint Chief Complaint: NAUSEA/VOMITING HPI HPI 57-year-old female presenting the emergency department today with nausea and vomiting started about 3 days ago associated with lightheadedness. She was seen in clinic and referred here for further evaluation workup and care. Her vomitus is nonbilious and nonbloody. She feels lightheaded when she stands up. She denies any abdominal pain. She reports currently having flatus and her last bowel movement was yesterday. She has a history of a hysterectomy and C- section. Past medical history CHF hypertension and a viral-induced cardiomyopathy along with allergic rhinitis. History of heart catheter. Social history denies smoking drinking or IV drug use. Review of systems is negative for chest pain shortness of breath fevers or chills. All other review of systems is negative. ED course: 57-year-old female presenting with nausea and vomiting. On arrival vital signs show significant hypertension. Normal temperature and heart rate is within normal limits. Abdomen is soft nondistended nontender palpation without rebound tenderness or guarding. Otherwise exam is unremarkable. Blood work obtained along with CT abdomen pelvis. CT shows diverticulosis without any signs of inflammation. No obstruction. No acute abnormalities on CT. On repeat abdominal exam her abdomen continues to be soft and nontender.The patient has been examined and was not found to have an emergency medical condition. The patient was then discharged home in stable condition to follow up with their primary care physician over the next 1-2 days. They were to return if their symptoms worsened or if they were concerned for any reason. They were also instructed to return to the emergency department if they were unable to get the recommended and appropriate follow-up. [id number] discharge instructions and return precautions were given. Patient's questions were answered to their satisfaction. Patient is comfortable with plan. Current Medications Current Medications Current Medications Medications (Trade) Dose Ordered Sig/Héctor Start Time Stop Time Status Last Admin Dose Admin Ondansetron HCl (Zofran) 4 mg 1X ONCE 04/16/18 15:30 04/16/18 15:31 DC 04/16/18 16:25 4 MG Sodium Chloride 500 ml @ 500 mls/hr 1X ONCE 04/16/18 15:30 04/16/18 16:29 DC 04/16/18 15:49 500 MLS/HR Allergies Allergies Allergies Coded Allergies Type Severity Reaction Last Updated Verified gold Au 198 Allergy Severe SEVERE RASH DEVELOPS OPEN SORES 04/10/17 Yes nickel Allergy Severe SEVERE RASH DEVELOPS TO OPEN SORES 04/10/17 Yes adhesive Allergy Intermediate SILK AND PAPER TAPE CAUSE A RASH 04/10/17 Yes sulfamethoxazole Allergy Intermediate 04/10/17 Yes trimethoprim Allergy Intermediate 04/10/17 Yes erythromycin base Adverse Reaction Intermediate GASTRIC DISTRESS 04/10/17 Yes Physical Exam Physical Exam Constitutional: Well developed, well nourished, no acute distress, non-toxic appearance. [] HENT: Normocephalic, atraumatic, bilateral external ears normal, oropharynx moist, no oral exudates, nose normal. [] Eyes: PERRLA, EOMI, conjunctiva normal, no discharge. [] Neck: Normal range of motion, no tenderness, supple, no stridor. [] Cardiovascular:Heart rate regular rhythm, no murmur [] Lungs & Thorax: Bilateral breath sounds clear to auscultation [] Abdomen: Bowel sounds normal, soft, no tenderness, no masses, no pulsatile masses. [] Skin: Warm, dry, no erythema, no rash. [] Back: No tenderness, no CVA tenderness. [] Extremities: No tenderness, no cyanosis, no clubbing, ROM intact, no edema. [] Neurologic: Alert and oriented X 3, normal motor function, normal sensory function, no focal deficits noted. [] Psychologic: Affect normal, judgement normal, mood normal. [] Current Patient Data Vital Signs Vital Signs Date Time Temp Pulse Resp B/P (MAP) Pulse Ox O2 Delivery O2 Flow Rate FiO2 04/16/18 13:48 97.5 69 16 222/91 (134) 98 Room Air 97.5 Lab Values Laboratory Tests Test 04/16/18 13:53 04/16/18 14:37 White Blood Count 6.7 x10^3/uL (4.0-11.0) Red Blood Count 4.61 x10^6/uL (3.50-5.40) Hemoglobin 13.2 g/dL (12.0-15.5) Hematocrit 38.1 % (36.0-47.0) Mean Corpuscular Volume 83 fL (79-100) Mean Corpuscular Hemoglobin 29 pg (25-35) Mean Corpuscular Hemoglobin Concent 35 g/dL (31-37) Red Cell Distribution Width 14.1 % (11.5-14.5) Platelet Count 199 x10^3/uL (140-400) Neutrophils (%) (Auto) 89 % (31-73) H Lymphocytes (%) (Auto) 8 % (24-48) L Monocytes (%) (Auto) 3 % (0-9) Eosinophils (%) (Auto) 0 % (0-3) Basophils (%) (Auto) 0 % (0-3) Neutrophils # (Auto) 5.9 x10^3uL (1.8-7.7) Lymphocytes # (Auto) 0.6 x10^3/uL (1.0-4.8) L Monocytes # (Auto) 0.2 x10^3/uL (0.0-1.1) Eosinophils # (Auto) 0.0 x10^3/uL (0.0-0.7) Basophils # (Auto) 0.0 x10^3/uL (0.0-0.2) Segmented Neutrophils % 82 % (35-66) H Band Neutrophils % 4 % (0-9) Lymphocytes % 11 % (24-48) L Monocytes % 3 % (0-10) Platelet Estimate Adequate (ADEQUATE) Sodium Level 144 mmol/L (136-145) Potassium Level 4.5 mmol/L (3.5-5.1) Chloride Level 105 mmol/L (98-107) Carbon Dioxide Level 28 mmol/L (21-32) Anion Gap 11 (6-14) Blood Urea Nitrogen 20 mg/dL (7-20) Creatinine 1.4 mg/dL (0.6-1.0) H Estimated GFR (Cockcroft-Gault) 38.8 Glucose Level 128 mg/dL (70-99) H Calcium Level 9.8 mg/dL (8.5-10.1) Total Bilirubin 0.4 mg/dL (0.2-1.0) Direct Bilirubin 0.1 mg/dL (0.0-0.2) Aspartate Amino Transferase (AST) 33 U/L (15-37) Alanine Aminotransferase (ALT) 59 U/L (14-59) Alkaline Phosphatase 103 U/L (46-116) Troponin I Quantitative < 0.017 ng/mL (0.000-0.055) Total Protein 7.5 g/dL (6.4-8.2) Albumin 3.8 g/dL (3.4-5.0) Lipase 109 U/L (73-393) Urine Collection Type Unknown Urine Color Viji Urine Clarity Turbid Urine pH 5.5 Urine Specific Gould >=1.030 Urine Protein >=300 mg/dL (NEG-TRACE) Urine Glucose (UA) Negative mg/dL (NEG) Urine Ketones (Stick) Trace mg/dL (NEG) Urine Blood Moderate (NEG) Urine Nitrite Negative (NEG) Urine Bilirubin Negative (NEG) Urine Urobilinogen Dipstick 0.2 mg/dL (0.2 mg/dL) Urine Leukocyte Esterase Negative (NEG) Urine RBC 1-2 /HPF (0-2) Urine WBC 0 /HPF (0-4) Urine Squamous Epithelial Cells Few /LPF Urine Amorphous Sediment Present /HPF Urine Bacteria Few /HPF (0-FEW) Urine Hyaline Casts Few /HPF Urine Mucus Mod /LPF Laboratory Tests 04/16/18 13:53 Laboratory Tests 04/16/18 13:53 EKG EKG [] Radiology/Procedures Radiology/Procedures [] Course & Med Decision Making Course & Med Decision Making Pertinent Labs and Imaging studies reviewed. (See chart for details) [] Dragon Disclaimer Dragon Disclaimer This electronic medical record was generated, in whole or in part, using a voice recognition dictation system. Departure Departure Impression: Primary Impression: Nausea and vomiting Disposition: 01 HOME, SELF-CARE Condition: STABLE Referrals: BRIAN MENDEZ MD (PCP) Patient Instructions: Nausea and Vomiting Additional Instructions: Thank you for allowing us to participate in your care today. Return to the emergency department you have any new or worsening symptoms, or if you are concerned for any reason. Return to emergency department if you have any new or concerning symptoms including but not limited to fever, chills, nausea, vomiting, intractable pain, any new rashes, chest pain, shortness of air , uncontrolled bleeding, difficulty breathing, and/or vision loss. Follow up with your primary care physician within 1-2 days. Call your Primary Doctor tomorrow and inform them of your visit today. If you do not have a primary care provider we are happy to provide you with a list of our primary care providers contact information. This condition should be evaluated by your primary care physician and any recommended consulting services for continued management within 2 days after discharge. If at any time, you are having difficulty getting into your primary care doctor or a specialist, return to the emergency department. Scripts Ondansetron Hcl (ZOFRAN) 4 Mg Tablet 1 TAB PO PRN Q6-8HRS, #5 TAB Prov: MINI COLÓN MD 04/16/18 MINI COLÓN MD Apr 16, 2018 15:44
[2018-04-16 16:03] LABS: BILIRUBIN,URINE NEGATIVE (NEG); CLARITY,URINE TURBID; COLOR,URINE AMBER; NITRITE,URINE NEGATIVE (NEG); PH,URINE 5.5; PROTEIN,URINE >=300 mg/dL (NEG-TRACE); UROBILINOGEN,URINE 0.2 mg/dL (0.2 mg/dL)
[2018-04-16 16:09] LABS: BACTERIA,URINE FEW /HPF (0-FEW); SQUAMOUS EPITHELIAL CELL,UR FEW /LPF; WBC,URINE 0 /HPF (0-4)
[2018-04-16 16:10] LABS: AMORPHOUS SEDIMENT,UR PRESENT /HPF; HYALINE CASTS, URINE FEW /HPF
--- NOTE | 2018-04-16 16:20 | RAD ---
Examination: CT ABDOMEN PELVIS WO CONTRAST History: ABD PAIN, R/O OBSTRUCTION
PRIOR SENT Comparison/Correlation: CTA of the abdomen, chest, and pelvis 12/18/2014 Findings: Axial images of the abdomen and pelvis were obtained without contrast. Sagittal and coronal reformatted images were provided. Mitral annular calculation is partially seen. Small hiatal hernia is present. Calcified involves the posterior right lung base. Left lateral basilar calcified granuloma present. Unenhanced liver is unremarkable. Spleen is enlarged measuring 14 cm longitudinal. Gallbladder fossa is unremarkable. Small diverticula involves the proximal duodenum medially. Pancreas is normal. No radiopaque collecting system calculi. Urinary bladder is nearly completely decompressed. Diverticulosis of the colon is present. Appendix is normal. No enlarged abdominal or pelvic lymph nodes. No extraluminal gas. Bony structures are unremarkable for age. Impression: Diverticulosis of the colon without inflammation. Duodenal diverticulum. No bowel obstruction. Splenomegaly is unchanged compared to the prior exam. No radiopaque collecting system calculi or evidence of obstruction. Hiatal hernia. Electronically signed by: Dinh Bauman MD (04/16/2018 4:16 PM) [id number]
[2018-04-16] MEDS ORDERED: ONDA4TAB7 PO (16:34)
[2018-04-16 17:16] VITALS: BP 174/84
[2018-04-20] MEDS ORDERED: OLOP5DRO EACHEYE (23:23)
[2018-04-20] MEDS ORDERED: OMEP20CA9 PO (23:23)
== END 2018-04-16 17:15 | disposition home or self-care (01) ==
LOC: ER 12:47
DX: R11.2 Nausea with vomiting, unspecified (principal); I11.0 Hypertensive heart disease with heart failure; I50.9 Heart failure, unspecified; Z90.710 Acquired absence of both cervix and uterus
CPT/HCPCS: 36415; 74176; 80048; 80076; 81001; 83690; 84484; 85007; 85025; 93005; 96361; 96374; 99284; J2405; J7040

== ENCOUNTER → 2018-05-25 | Outpatient (CLI) | payer OTHER ==
[2018-04-30 10:34] VITALS: BP 147/88
[~2018-05-25] MED LIST changes: +ACET500T68 PO; +AMLO2.5T5 PO; +AMLO5TAB10 PO; +CITA10TA8 PO; +OLOP5DRO EACHEYE; +OMEP20CA9 PO; +ONDA4TAB7 PO
--- NOTE | 2018-05-25 15:30 | CARD ---
MR#: [id number] Date of Study: 05/25/2018 Ordering Physician: MARIELA GLOVER, Referring Physician: MARIELA GLOVER, Tech: Lamar Mcfarlane DEB APPROVED REPORT EXAM: Two-dimensional and M-mode echocardiogram with Doppler and color Doppler. Other Information Quality : Fair INDICATION NICM 2D DIMENSIONS RVDd3.1 (2.9-3.5cm)Left Atrium(2D)3.8 (1.6-4.0cm) IVSd1.1 (0.7-1.1cm)Aortic Root(2D)3.0 (2.0-3.7cm) LVDd3.9 (3.9-5.9cm)LVOT Diameter2.2 (1.8-2.4cm) PWd1.1 (0.7-1.1cm)LVDs3.2 (2.5-4.0cm) FS (%) 27.0 %SV24.6 ml LVEF(%)55.0 (>50%) Aortic Valve AoV Peak Robb.122.2cm/sAoV VTI23.0cm AO Peak GR.6.0mmHgLVOT Peak Robb.99.9cm/s LVOT VTI 17.55cmAO Mean GR.4mmHg SHELLI (VMAX)3.81vi9DSK (VTI)2.96cm2 Mitral Valve MV E Thimvojm15.6cm/sMV DECEL [id number] MV A Wgiioenz30.6cm/sMV UXM43ey E/A Ratio0.8MVA (PHT)2.37cm2 TDI E/Lateral E'7.8E/Medial E'10.5 Tricuspid Valve TR P. Pzkpbyzz904mi/sRAP DIWPVNCD7rvGm TR Peak Gr.34tuJkGFHE86bmIt Pulmonary Vein S1 Acauhnyj09.1cm/sD2 Klrstwyq59.9cm/s LEFT VENTRICLE The left ventricle is normal size. There is normal left ventricular wall thickness. The left ventricu lar systolic function is normal. The Ejection Fraction is 55-60%. There is normal LV segmental wall m otion. Transmitral Doppler flow pattern is Grade I-abnormal relaxation pattern. RIGHT VENTRICLE The right ventricle is normal size. The right ventricular systolic function is normal. ATRIA The left atrium size is normal. The right atrium size is normal. The interatrial septum is intact wit h no evidence for an atrial septal defect or patent foramen ovale as noted on 2-D or Doppler imaging. AORTIC VALVE The aortic valve is normal in structure and function. Doppler and Color Flow revealed no significant aortic regurgitation. There is no significant aortic valvular stenosis. MITRAL VALVE The mitral valve is calcified but opens well. Posterior mitral annular calcification is mild. There i s no evidence of mitral valve prolapse. There is no mitral valve stenosis. Doppler and Color Flow rev ealed no mitral valve regurgitation noted. TRICUSPID VALVE The tricuspid valve is normal in structure and function. Doppler and Color Flow revealed mild tricusp id regurgitation. There is mild pulmonary hypertension. The PA pressure was estimated at 39 mmHg. The re is no tricuspid valve stenosis. PULMONIC VALVE The pulmonic valve is not well visualized. Doppler and Color Flow revealed trace pulmonic valvular re gurgitation. There is no pulmonic valvular stenosis. GREAT VESSELS The aortic root is normal in size. The ascending aorta is normal in size. The IVC is normal in size a nd collapses >50% with inspiration. PERICARDIAL EFFUSION There is no evidence of significant pericardial effusion. Critical Notification Critical Value: No <Conclusion> The left ventricular systolic function is normal. The Ejection Fraction is 55-60%. There is normal LV segmental wall motion. Transmitral Doppler flow pattern is Grade I-abnormal relaxation pattern. Mild tricuspid regurgitation. There is mild pulmonary hypertension. The PA pressure was estimated at 39 mmHg. There is no evidence of significant pericardial effusion. Signed by : Zacarias Balderas, Electronically Approved : 05/25/2018 15:28:38
== END | disposition home or self-care (01) ==
LOC: ECHO 14:01
PROVIDERS: ATTEND Internal Medicine Cardiovascular Disease
DX: I36.1 Nonrheumatic tricuspid (valve) insufficiency (principal); I27.20 Pulmonary hypertension, unspecified; R00.8 Other abnormalities of heart beat
CPT/HCPCS: 93306

== ENCOUNTER → 2018-05-31 | Outpatient (CLI) | payer OTHER ==
[2018-04-30 10:34] VITALS: BP 147/88
[~2018-05-31] MED LIST changes: +GADOBUTROL 7.5 MMOL/7.5 ML VIAL IV ONE
--- NOTE | 2018-05-31 14:27 | KCIC ---
EXAM: Brain MRI with and without contrast. HISTORY: Cavernous angioma. TECHNIQUE: Multiplanar, multisequence magnetic resonance imaging of the brain was performed prior to and following the administration of 11 cc Gadavist intravenous contrast. COMPARISON: CT angiogram dated 04/28/2018 and brain MRI dated 04/28/2018. FINDINGS: There is a stable round peripherally T2 hypointense lesion within the right dorsal aspect of the avtar. This demonstrates intense susceptibility effect due to hemosiderin deposition. There is faint T1 hyperintensity associated with this lesion due to blood products. There is linear branching enhancement within the right cerebellum due to a developmental venous anomaly. There is associated slight susceptibility effect along the course of this developmental venous anomaly. No additional enhancing lesion is seen. There is no mass effect or midline shift. There is no hydrocephalus. No suspicious white matter lesion is seen. There is stable slightly prominent bilateral optic nerve sheath fluid. There is minimal paranasal sinus mucosal thickening. The mastoid air cells are clear. There are normal flow voids within the cerebral vessels. There is no restricted diffusion to suggest acute or subacute infarction. IMPRESSION: 1. 8 mm lesion with susceptibility effect and slight internal T1 hyperintensity along the right dorsal avtar, the appearance of which favors a cavernoma with associated hemosiderin deposition/hemorrhage. This is not significantly changed compared to the prior study, allowing for differences in technique. 2. Right cerebellar developmental venous anomaly. 3. No new or acute intercranial finding. Electronically signed by: Leonor Trevizo MD (05/31/2018 2:22 PM) [id number]
== END | disposition home or self-care (01) ==
LOC: KCIC MRI 12:40
PROVIDERS: ATTEND Neurological Surgery
DX: D18.02 Hemangioma of intracranial structures (principal); I11.0 Hypertensive heart disease with heart failure; I50.9 Heart failure, unspecified; Z86.69 Personal history of other diseases of the nervous system and sense organs
CPT/HCPCS: 70553; 82565; A9585

== ENCOUNTER → 2018-09-17 | Outpatient (CLI) | payer OTHER ==
[2018-04-30 10:34] VITALS: BP 147/88
[~2018-09-17] MED LIST changes: -GADOBUTROL 7.5 MMOL/7.5 ML VIAL IV ONE; +OMEP20CA10 PO; -OMEP20CA9 PO
[2018-09-17 12:35] LABS: CHOLESTEROL/HDL RATIO 3.1
[2018-09-17 12:59] LABS: FREE T4 1.02 ng/dL (0.76-1.46); THYROID STIM HORMONE (TSH) 1.048 uIU/mL (0.358-3.74)
== END | disposition home or self-care (01) ==
LOC: LAB 10:41
PROVIDERS: ATTEND Psychiatry & Neurology Neurology
DX: E78.5 Hyperlipidemia, unspecified (principal); E55.9 Vitamin D deficiency, unspecified
CPT/HCPCS: 36415; 80061; 82306; 82652; 82947; 84439; 84443; 84481

== ENCOUNTER → 2019-02-21 | Outpatient (CLI) | payer OTHER ==
[2018-04-30 10:34] VITALS: BP 147/88
--- NOTE | 2019-02-21 12:34 | RAD ---
EXAM: Right knee, 3 views. HISTORY: Pain. COMPARISON: None. FINDINGS: 3 views of the right knee are obtained. There is mild medial compartment joint space narrowing and moderate medial and mild lateral and patellofemoral compartment spurring. There is slight lateral subluxation of the tibia relative to the femoral condyles. There is no joint effusion. IMPRESSION: 1. 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 2. No acute osseous finding. Electronically signed by: Leonor Trevizo MD (02/21/2019 12:30 PM) [place] [id number]
--- NOTE | 2019-02-21 16:51 | RAD ---
DATE: 02/21/2019. EXAM: MAMMO ODETTE SCREENING BILATERAL. HISTORY: Routine mammographic screening. COMPARISON: 02/26/2017. This study was interpreted with the benefit of Computerized Aided Detection (CAD). FINDINGS: Breast Density: FATTY The breast parenchyma is primarily fatty replaced. Breast parenchyma level density A.. Scattered, coarse and vascular calcifications are benign. There are no suspicious masses, microcalcifications or architectural distortion. The parenchymal pattern is stable. BI-RADS CATEGORY: 2 BENIGN FINDING(S). RECOMMENDED FOLLOW-UP: 12M 12 MONTH FOLLOW-UP. PQRS compliance statement: Patient information was entered into a reminder system with a target due date 02/22/2020 for the next mammogram. Mammography is a sensitive method for finding small breast cancers, but it does not detect them all and is not a substitute for careful clinical examination. A negative mammogram does not negate a clinically suspicious finding and should not result in delay in biopsying a clinically suspicious abnormality. "Our facility is accredited by the [employer] Mammography Program."
== END | disposition home or self-care (01) ==
LOC: MAMMO 11:30
PROVIDERS: ATTEND Family Medicine
DX: Z12.31 Encounter for screening mammogram for malignant neoplasm of breast (principal); S83.101A Unspecified subluxation of right knee, initial encounter; M17.11 Unilateral primary osteoarthritis, right knee; M25.861 Other specified joint disorders, right knee; X58.XXXA Exposure to other specified factors, initial encounter; Y93.89 Activity, other specified; Y92.89 Other specified places as the place of occurrence of the external cause; Y99.8 Other external cause status
CPT/HCPCS: 73564; 77063; 77067

== ENCOUNTER → 2019-04-29 | Outpatient (CLI) | payer OTHER ==
[2018-04-30 10:34] VITALS: BP 147/88
[~2019-04-29] MED LIST changes: -MECL12.52 PO; +MECL12.573 PO; -OMEP20CA10 PO; +OMEP20CA16 PO
[2019-04-29 11:01] LABS: CHOLESTEROL/HDL RATIO 3.1
== END | disposition home or self-care (01) ==
LOC: LAB 09:23
PROVIDERS: ATTEND Psychiatry & Neurology Neurology
DX: E78.5 Hyperlipidemia, unspecified (principal); G93.9 Disorder of brain, unspecified; E55.9 Vitamin D deficiency, unspecified
CPT/HCPCS: 36415; 80061; 82306; 82607; 82947

== ENCOUNTER → 2019-06-09 | Outpatient (CLI) | payer OTHER ==
[2018-04-30 10:34] VITALS: BP 147/88
--- NOTE | 2019-06-09 13:37 | CARD ---
MR#: [id number] Date of Study: 06/09/2019 Ordering Physician: MARIELA MARTINEZ, Referring Physician: MARIELA MARTINEZ, Tech: Jessy Winslow APPROVED REPORT EXAM: Two-dimensional and M-mode echocardiogram with Doppler and color Doppler. Other Information Quality : AverageHR: 75bpm Technically limited study due to body habitus. INDICATION Cardiomyopathy NICM RISK FACTORS Hypertension 2D DIMENSIONS RVDd3.3 (2.9-3.5cm)Left Atrium(2D)3.8 (1.6-4.0cm) IVSd1.1 (0.7-1.1cm)Aortic Root(2D)2.8 (2.0-3.7cm) LVDd5.4 (3.9-5.9cm)LVOT Diameter2.1 (1.8-2.4cm) PWd1.0 (0.7-1.1cm)LVDs3.3 (2.5-4.0cm) FS (%) 38.3 %SV94.6 ml LVEF(%)68.1 (>50%) Aortic Valve AoV Peak Robb.155.5cm/sAoV VTI34.8cm AO Peak GR.9.7mmHgLVOT Peak Robb.86.6cm/s LVOT VTI 20.57cmAO Mean GR.5mmHg SHELLI (VMAX)1.50nc9HTO (VTI)1.96cm2 Mitral Valve MV E Gglebhdv88.3cm/sMV DECEL GIJU340xl MV A Gnfpzaaa942.7cm/sMV WTL17kd E/A Ratio0.7MVA (PHT)3.66cm2 TDI E/Lateral E'8.5E/Medial E'13.4 Pulmonary Valve PV Peak Vsicztzu93.0cm/sPV Peak Grad.3mmHg Tricuspid Valve TR P. Inynnynw419bu/sRAP BLIIBOEI5qnRr TR Peak Gr.92ypIsVAPA61zbTi Pulmonary Vein S1 Evpizkso16.1cm/sD2 Ymjsdbkq01.5cm/s PVa wtvmlbax385sbof LEFT VENTRICLE The left ventricle is normal size. There is mild concentric left ventricular hypertrophy. The left ve ntricular systolic function is normal and the ejection fraction is within normal range. The Ejection Fraction is 55%. There is normal LV segmental wall motion. Transmitral Doppler flow pattern is Grade I-abnormal relaxation pattern. RIGHT VENTRICLE The right ventricle is normal size. There is normal right ventricular wall thickness. The right ventr icular systolic function is normal. ATRIA The left atrium is borderline dilated. The right atrium size is normal. The interatrial septum is int act with no evidence for an atrial septal defect or patent foramen ovale as noted on 2-D or Doppler i maging. AORTIC VALVE The aortic valve is thickened but opens well. Doppler and Color Flow revealed no significant aortic r egurgitation. There is no significant aortic valvular stenosis. MITRAL VALVE The mitral valve is thickened but opens well. There is no evidence of mitral valve prolapse. There is no mitral valve stenosis. Doppler and Color-flow revealed trace mitral regurgitation. TRICUSPID VALVE The tricuspid valve is normal in structure and function. Doppler and Color Flow revealed trace to mil d tricuspid regurgitation with an estimated PAP of 32 mmHg. There is no tricuspid valve stenosis. PULMONIC VALVE The pulmonic valve is not well visualized. Doppler and Color Flow revealed no pulmonic valvular regur gitation. There is no pulmonic valvular stenosis. GREAT VESSELS The aortic root is normal in size. The ascending aorta is normal in size. The IVC is normal in size a nd collapses >50% with inspiration. PERICARDIAL EFFUSION There is no evidence of significant pericardial effusion. Critical Notification Critical Value: No <Conclusion> The left ventricular systolic function is normal and the ejection fraction is within normal range. Th e Ejection Fraction is 55%. There is normal LV segmental wall motion. Signed by : Mariela Martinez, Electronically Approved : 06/09/2019 11:08:13
== END | disposition home or self-care (01) ==
LOC: ECHO 07:59
PROVIDERS: ATTEND Internal Medicine Cardiovascular Disease
DX: I08.2 Rheumatic disorders of both aortic and tricuspid valves (principal); I11.9 Hypertensive heart disease without heart failure; I42.8 Other cardiomyopathies
CPT/HCPCS: 93306

== ENCOUNTER → 2019-06-27 | Outpatient (CLI) | payer OTHER ==
[2018-04-30 10:34] VITALS: BP 147/88
[2019-06-27] MEDS: GADOTERATE 5 MMOL/10ML VIAL. IVP ONE (10:29)
--- NOTE | 2019-06-27 10:53 | KCIC ---
EXAM: Brain MRI with and without contrast. HISTORY: Cavernoma follow-up. TECHNIQUE: Multiplanar, multisequence magnetic resonance imaging of the brain was performed prior to and following the administration intravenous contrast. COMPARISON: 720 90,019 FINDINGS: There is no restricted diffusion to suggest acute or subacute infarction. There is no mass effect or midline shift. There is no hydrocephalus. There is susceptibility effect associated with a round peripherally T2 hypointense lesion within the dorsal avtar of the right of midline measuring 6 mm. There is no surrounding parenchymal signal abnormality or lesion enhancement. There is a linear branching enhancing lesion with associated susceptibility effect and T2 hypointensity within the right cerebellum due to a developmental venous anomaly. There is a small focus of T2/FLAIR hyperintensity within the left frontal white matter. The orbits are unremarkable. There is mild paranasal sinus mucosal thickening. The mastoid air cells are clear. There are normal flow voids within the cerebral vessels. No calvarial lesion is seen. IMPRESSION: 1. 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 The previously demonstrated T1 hyperintensity consistent with hemorrhage is no longer seen. There is no surrounding parenchymal signal abnormality. 2. Developmental venous anomaly within the right cerebellum. 3. Stable small focus of signal change within the left frontal white matter, most commonly due to chronic small vessel disease in patients of this age. Electronically signed by: Leonor Trevizo MD (06/27/2019 10:50 AM) [id number]
== END ==
LOC: KCIC MRI 09:32
PROVIDERS: ATTEND Neurological Surgery
DX: D18.02 Hemangioma of intracranial structures (principal); I73.89 Other specified peripheral vascular diseases
CPT/HCPCS: 70553; A9575

== ENCOUNTER → 2019-10-25 | Outpatient (CLI) | payer OTHER ==
[2018-04-30 10:34] VITALS: BP 147/88
[~2019-10-25] MED LIST changes: -ASCO500T2 PO; +ASCO500T4 PO; -TERB250T11 PO; +TERB250T84 PO
== END | disposition home or self-care (01) ==
LOC: NM 16:28
PROVIDERS: ATTEND Internal Medicine Pulmonary Disease
DX: Z20.828 Contact with and (suspected) exposure to other viral communicable diseases (principal); J02.9 Acute pharyngitis, unspecified; R53.81 Other malaise
CPT/HCPCS: U0003-CS

== ENCOUNTER → 2020-02-14 | Outpatient (CLI) | payer OTHER ==
[2018-04-30 10:34] VITALS: BP 147/88
[~2020-02-14] MED LIST changes: +AMLO-186 PO; -AMLO5TAB10 PO; +ASCO100019 PO; -ASCO10002 PO
== END ==
LOC: LAB 12:06
PROVIDERS: ATTEND Internal Medicine Pulmonary Disease
DX: R05 Cough (principal); Z20.828 Contact with and (suspected) exposure to other viral communicable diseases
CPT/HCPCS: U0003

== ENCOUNTER → 2020-02-21 | Outpatient (CLI) | payer OTHER ==
[2018-04-30 10:34] VITALS: BP 147/88
== END ==
LOC: LAB 10:14
PROVIDERS: ATTEND Family Medicine
DX: R30.0 Dysuria (principal)
CPT/HCPCS: 87086

== ENCOUNTER → 2020-07-02 | Outpatient (CLI) | payer OTHER ==
[2018-04-30 10:34] VITALS: BP 147/88
[~2020-07-02] MED LIST changes: +GADOTERATE 5 MMOL/10ML VIAL. IVP ONE; -LISI-338 PO; +LISI-517 PO; -MECL12.573 PO; +MECL12.582 PO
--- NOTE | 2020-07-02 11:47 | KCIC ---
MRI BRAIN WO+W Date: 07/02/2020 8:55 AM Indication: Cavernous angioma follow up. Comparison: 06/27/2019. Technique: Multiplanar multisequence MRI of the brain was performed with and without intravenous cont rast using the standard protocol. 20 cc Clariscan contrast was administered intravenously during the exam. Findings: No acute infarct. No acute hemorrhage. The ventricles are normal in size and configuration without hy drocephalus. Minimal scattered FLAIR hyperintensities in the subcortical and periventricular deep whi te matter, a nonspecific finding, appropriate for patient age. 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 Right cerebellar developmental venous anomaly. The scalp and calvarium are normal. The pituitary and sella are normal. No Chiari malformation. The v isualized upper cervical spine is normal. The visualized orbits and globes are normal. The visualized paranasal sinuses are clear. The mastoid air cells are clear. Normal flow voids within the vertebral, basilar, and internal carotid arteries indicating patency. IMPRESSION: Stable small right pontine cavernoma. Electronically signed by: Bhavesh Leong MD (07/02/2020 11:45 AM) [id number]
== END ==
LOC: KCIC MRI 08:41
PROVIDERS: ATTEND Neurological Surgery
DX: D18.02 Hemangioma of intracranial structures (principal)
CPT/HCPCS: 70553; A9575

== ENCOUNTER → 2020-10-29 | Outpatient (CLI) | payer OTHER ==
[2018-04-30 10:34] VITALS: BP 147/88
[~2020-10-29] MED LIST changes: -GADOTERATE 5 MMOL/10ML VIAL. IVP ONE
[2020-10-29 10:40] LABS: BASO % 0 % (0-3); EOS % 0 % (0-3); HEMATOCRIT 35.9 % (36.0-47.0); LYMPH % 24 % (24-48); MEAN CORPUSCULAR HEMOGLOBIN 28 pg (25-35); MEAN CORPUSCULAR HGB CONC 34 g/dL (31-37); MEAN CORPUSCULAR VOLUME 83 fL (79-100); MONO # 0.2 x10^3/uL (0.0-1.1); MONO % 5 % (0-9); NEUT % 71 % (31-73); PLATELET COUNT 186 x10^3/uL (140-400); RED BLOOD COUNT 4.33 x10^6/uL (3.50-5.40); RED CELL DISTRIBUTION WIDTH 14.3 % (11.5-14.5); WHITE BLOOD COUNT 4.2 x10^3/uL (4.0-11.0)
[2020-10-29 11:10] LABS: ALBUMIN 3.5 g/dL (3.4-5.0); ALBUMIN/GLOBULIN RATIO 0.9 (1.0-1.7); CALCIUM 9.3 mg/dL (8.5-10.1); CHOLESTEROL/HDL RATIO 3.1; CREATININE 1.2 mg/dL (0.6-1.0); GFR 45.8; POTASSIUM 4.8 mmol/L (3.5-5.1); TOTAL BILIRUBIN 0.4 mg/dL (0.2-1.0); TOTAL PROTEIN 7.4 g/dL (6.4-8.2)
== END ==
LOC: LAB 10:16
PROVIDERS: ATTEND Family Medicine
DX: Z13.220 Encounter for screening for lipoid disorders (principal); I10 Essential (primary) hypertension
CPT/HCPCS: 36415; 80053; 80061; 85025

== ENCOUNTER → 2021-01-14 | Outpatient (CLI) | payer OTHER ==
[2020-12-18 17:53] VITALS: BP 144/73
[~2021-01-14] MED LIST changes: +AMOX1TAB61 PO; +DOXY-181 PO; +INSU100V35 SQ; +LACT1CAP19 PO; +TERB250T72 PO; -TERB250T84 PO
--- NOTE | 2021-01-17 15:49 | RAD ---
DATE: 01/14/2021 EXAM: MAMMO ODETTE SCREENING BILATERAL HISTORY: Screening COMPARISON: Multiple prior exams including 02/21/2019, 02/26/2017, and 10/18/2012 This study was interpreted with the benefit of Computerized Aided Detection (CAD). Breast Density: SCATTERED The breast parenchyma shows scattered fibroglandular densities. Breast parenchyma level B. FINDINGS: No mass, suspicious calcification, or architectural distortion in either breast. IMPRESSION: No evidence of malignancy. BI-RADS CATEGORY: 1 NEGATIVE RECOMMENDED FOLLOW-UP: 12M 12 MONTH FOLLOW-UP PQRS compliance statement: Patient information was entered into a reminder system with a target due date for the next mammogram. Mammography is a sensitive method for finding small breast cancers, but it does not detect them all and is not a substitute for careful clinical examination. A negative mammogram does not negate a clinically suspicious finding and should not result in delay in biopsying a clinically suspicious abnormality. "Our facility is accredited by the [employer] Mammography Program."
== END ==
LOC: MAMMO 09:03
PROVIDERS: ATTEND Family Medicine
DX: Z12.31 Encounter for screening mammogram for malignant neoplasm of breast (principal)
CPT/HCPCS: 77063; 77067

== ENCOUNTER → 2021-06-17 | Outpatient (CLI) | payer OTHER ==
[2020-12-18 17:53] VITALS: BP 144/73
[~2021-06-17] MED LIST changes: +GADOTERATE 7.5 MMOL/15ML VIAL. IVP ONE; -LISI-517 PO; +LISI5TAB15 PO
--- NOTE | 2021-06-17 13:27 | KCIC ---
MRI BRAIN WO+W Date: 06/17/2021 10:15 AM Indication: CAVERNOUS ANGIOMA. Follow up imaging for cavernous angioma. Comparison: None. Technique: Multiplanar multisequence MRI of the brain was performed with and without intravenous cont rast using the standard protocol. 24 cc Clariscan contrast was administered intravenously during the exam. Findings: No acute infarct. No acute hemorrhage. The ventricles are normal in size and configuration without hy drocephalus. Stable 5 mm cavernoma in the right dorsal avtar. Right cerebellar developmental venous anomaly. The scalp and calvarium are normal. The pituitary and sella are normal. No Chiari malformation. The v isualized upper cervical spine is normal. The visualized orbits and globes are normal. The visualized paranasal sinuses are clear. The mastoid air cells are clear. Normal flow voids within the vertebral, basilar, and internal carotid arteries indicating patency. IMPRESSION: Stable right pontine 5 mm cavernoma. Electronically signed by: Bhavesh Leong MD (06/17/2021 1:24 PM) [id number]
== END ==
LOC: KCIC MRI 09:56
PROVIDERS: ATTEND Neurological Surgery
DX: D18.02 Hemangioma of intracranial structures (principal); Q28.3 Other malformations of cerebral vessels
CPT/HCPCS: 70553; 82565; A9575

== ENCOUNTER → 2021-08-12 | Outpatient (CLI) | payer OTHER ==
[2020-12-18 17:53] VITALS: BP 144/73
[~2021-08-12] MED LIST changes: -GADOTERATE 7.5 MMOL/15ML VIAL. IVP ONE; -OMEP20TA8 PO; +OMEP20TA91 PO
--- NOTE | 2021-08-12 16:57 | CARD ---
MR#: [id number] Date of Study: 08/12/2021 Ordering Physician: MARIELA GLOVER, Referring Physician: MARIELA GLOVER, Tech: AMADA HERNANDEZ [facility] APPROVED REPORT EXAM: Two-dimensional and M-mode echocardiogram with Doppler and color Doppler. Other Information Quality : AverageHR: 79bpm Rhythm : NSR INDICATION Dyspnea Cardiomyopathy 2D DIMENSIONS RVDd3.7 (2.9-3.5cm)Left Atrium(2D)3.6 (1.6-4.0cm) IVSd1.2 (0.7-1.1cm)Aortic Root(2D)2.9 (2.0-3.7cm) LVDd4.9 (3.9-5.9cm)LVOT Diameter2.3 (1.8-2.4cm) PWd1.3 (0.7-1.1cm)LVDs3.7 (2.5-4.0cm) FS (%) 25.3 %SV56.9 ml LVEF(%)49.8 (>50%) Aortic Valve AoV Peak Robb.152.9cm/sAoV VTI31.8cm AO Peak GR.9.4mmHgLVOT Peak Robb.103.0cm/s AO Mean GR.6mmHgAVA (VMAX)2.88cm2 Mitral Valve MV E Ncsmjxad98.6cm/sMV DECEL [id number] MV A Roospfoy20.3cm/sE/A Ratio0.8 Pulmonary Valve PV Peak Ukdjsian04.3cm/s Pulmonary Vein S1 Mgnesxds94.2cm/sD2 Ybtzbsat70.4cm/s PVa [id number] LEFT VENTRICLE The left ventricle is normal size. There is mild concentric left ventricular hypertrophy. The left ve ntrcular systolic function is normal. The ejection fraction is 55-60%. No regional wall motion abnorm alities noted. Transmitral Doppler flow pattern is Grade I-abnormal relaxation pattern. No left ventr icle thrombus noted on this study. There is no ventricular septal defect visualized. There is no left ventricular aneurysm. There is no mass noted in the left ventricle. RIGHT VENTRICLE The right ventricle is normal size. There is normal right ventricular wall thickness. The right ventr icular systolic function is normal. ATRIA The left atrium size is normal. The right atrium size is normal. The interatrial septum is intact wit h no evidence for an atrial septal defect or patent foramen ovale as noted on 2-D or Doppler imaging. AORTIC VALVE The aortic valve is normal in structure and function. No aortic regurgitation is present. There is no aortic valvular stenosis. There is no aortic valvular vegetation. MITRAL VALVE The mitral valve is normal in structure and function. There is no evidence of mitral valve prolapse. There is no mitral valve stenosis. There is no mitral valve regurgitation noted. TRICUSPID VALVE The tricuspid valve is normal in structure and function. Trace tricuspid regurgitation. There is no t ricuspid valve prolapse or vegetation. There is no tricuspid valve stenosis. PULMONIC VALVE The pulmonary valve is normal in structure and function. There is no pulmonic valvular regurgitation. There is no pulmonic valvular stenosis. GREAT VESSELS The aortic root is normal in size. The ascending aorta is normal in size. The pulmonary artery is nor mal. The IVC is normal in size and collapses >50% with inspiration. PERICARDIAL EFFUSION There is no pleural effusion. There is no evidence of significant pericardial effusion. Critical Notification Critical Value: No <Conclusion> The left ventrcular systolic function is normal. The ejection fraction is 55-60%. Transmitral Doppler flow pattern is Grade I-abnormal relaxation pattern. Trace tricuspid regurgitation. There is no evidence of significant pericardial effusion. Signed by : Zacarias Balderas, Electronically Approved : 08/12/2021 16:57:01
== END ==
LOC: ECHO 11:31
PROVIDERS: ATTEND Internal Medicine Cardiovascular Disease
DX: I51.7 Cardiomegaly (principal); I42.8 Other cardiomyopathies; R06.00 Dyspnea, unspecified
CPT/HCPCS: 93306; C8929